=== PATIENT | female | born 1960 | race Two or more races ===

== ENCOUNTER 2018-02-13 16:35 | Inpatient (IN) | payer MEDICARE, MEDICAID ==
[~2018-02-13] VITALS: Ht 157.5 cm; Wt 54.9 kg
[2018-02-13 17:12] VITALS: BP 115/77
--- NOTE | 2018-02-13 17:55 | Emergency Room Report ---
History of Present Illness General Chief Complaint: Altered Mental Status Source: Patient, EMS Present Illness HPI Patient is a 57-year-old female who had been sent in from the nursing facility. Patient had recently been discharged from the hospital back to her nursing facility.The patient vomited one time at in route as well as one time at the facility. The patient have any black or bloody emesis. The patient had prior history of psychiatric disease as well as hyponatremia. The patient reportedly had some changes in her mental status. Allergies: Coded Allergies: No Known Allergies (Unverified , 02/13/18) Patient History Past Medical History: see triage record Reviewed Nursing Documentation: PMH: Agreed; PSxH: Agreed Nursing Documentation-PMH Hx Cardiac Problems: No - miscle weakness, lack of coorderination Hx Hypertension: Yes Hx Pacemaker: No - hypernatremia Hx Diabetes: Yes History Of Psychiatric Problem: Yes - bi-polar Review of Systems All Other Systems: negative except mentioned in HPI Physical Exam Vital Signs Date Time Temp Pulse Resp B/P (MAP) Pulse Ox O2 Delivery O2 Flow Rate FiO2 02/13/18 16:28 98.1 85 16 115/77 99 Room Air 98.1 Sp02 EP Interpretation: reviewed, normal General Appearance: normal inspection, well appearing, no apparent distress, alert, Chronically Ill Head: atraumatic ENT: normal ENT inspection, hearing grossly normal, normal voice Neck: normal inspection, full range of motion, supple, no bony tend Respiratory: normal inspection, lungs clear, normal breath sounds, no respiratory distress, no retraction, no wheezing Cardiovascular #1: regular rate, rhythm, no edema Gastrointestinal: normal inspection, normal bowel sounds, non tender, soft, no guarding, no hernia Genitourinary: no CVA tenderness Musculoskeletal: normal inspection, back normal, normal range of motion Neurologic: normal inspection, alert, responsive, speech normal Psychiatric: normal inspection, judgement/insight normal, mood/affect normal Skin: normal inspection, normal color, no rash Medical Decision Making Diagnostic Impression: Primary Impression: Altered mental status Additional Impressions: Hypokalemia Psychosis Metabolic encephalopathy ER Course Patient presented for altered mental status. Differential diagnosis included but was not limited to ischemic stroke, subarachnoid hemorrhage, hypoglycemia, spinal cord injury, neurodegenerative disorder, urinary tract infection, hypoxemia.The patient was noted to have what appears to be chronic schizophrenia. The patient is awake and oriented. Patient appears to have recently been medicated.The CT the head read by radiology showed no evidence of acute CVA or hemorrhage.The laboratory testing showed markedly hypokalemia. Patient was noted on IV potassium replacement. The patient will likely require further IV potassium.Dr. Herndon was contacted for inpatient management due to complexity of medical condition. Labs Test 02/13/18 18:08 02/13/18 18:22 Sodium Level 137 MMOL/L (136-145) Potassium Level 2.5 MMOL/L (3.5-5.1) Chloride Level 97 MMOL/L (98-107) Carbon Dioxide Level 24 MMOL/L (21-32) Anion Gap 16 mmol/L (5-15) Blood Urea Nitrogen 10 mg/dL (7-18) Creatinine 0.8 MG/DL (0.55-1.30) Estimat Glomerular Filtration Rate > 60 mL/min (>60) Glucose Level 114 MG/DL (74-106) Calcium Level 9.3 MG/DL (8.5-10.1) Total Bilirubin 1.1 MG/DL (0.2-1.0) Direct Bilirubin 0.4 MG/DL (0.0-0.3) Aspartate Amino Transf (AST/SGOT) 63 U/L (15-37) Alanine Aminotransferase (ALT/SGPT) 46 U/L (12-78) Alkaline Phosphatase 69 U/L (46-116) Total Protein 7.1 G/DL (6.4-8.2) Albumin 2.9 G/DL (3.4-5.0) Globulin 4.2 g/dL Albumin/Globulin Ratio 0.7 (1.0-2.7) Thyroid Stimulating Hormone (TSH) 2.753 uiU/mL (0.358-3.740) Salicylates Level 1.6 ug/mL (2.8-20) Urine Opiates Screen Negative (NEGATIVE) Acetaminophen Level < 2 MCG/ML (10-30) Urine Barbiturates Screen Negative (NEGATIVE) Phencyclidine (PCP) Screen Negative (NEGATIVE) Urine Amphetamines Screen Negative (NEGATIVE) Urine Benzodiazepines Screen Negative (NEGATIVE) Urine Cocaine Screen Negative (NEGATIVE) Urine Marijuana (THC) Screen Negative (NEGATIVE) Serum Alcohol < 3 mg/dL White Blood Count 8.8 K/UL (4.8-10.8) Red Blood Count 4.94 M/UL (4.20-5.40) Hemoglobin 14.5 G/DL (12.0-16.0) Hematocrit 43.9 % (37.0-47.0) Mean Corpuscular Volume 89 FL (80-99) Mean Corpuscular Hemoglobin 29.4 PG (27.0-31.0) Mean Corpuscular Hemoglobin Concent 33.0 G/DL (32.0-36.0) Red Cell Distribution Width 13.6 % (11.6-14.8) Platelet Count 196 K/UL (150-450) Mean Platelet Volume 7.8 FL (6.5-10.1) Neutrophils (%) (Auto) 67.3 % (45.0-75.0) Lymphocytes (%) (Auto) 17.1 % (20.0-45.0) Monocytes (%) (Auto) 13.6 % (1.0-10.0) Eosinophils (%) (Auto) 0.8 % (0.0-3.0) Basophils (%) (Auto) 1.2 % (0.0-2.0) Last Vital Signs Date Time Temp Pulse Resp B/P (MAP) Pulse Ox O2 Delivery O2 Flow Rate FiO2 02/13/18 17:12 98.1 16 115/77 99 Room Air 98.1 02/13/18 16:28 85 Status: unchanged Disposition: ADMITTED INPATIENT Condition: Serious Tony Zapata MD February 13, 2018 17:55
[2018-02-13] MEDS ORDERED: GLUCAGEN1 M1 IJ (17:57)
[2018-02-13] MEDS ORDERED: XOPENEX0.63 MG/3 HHN (18:01)
[2018-02-13] MEDS ORDERED: ZYPREXA10 MG ORAL (18:01)
[2018-02-13] MEDS ORDERED: METFORMIN HCL500 M1 ORAL (18:01)
[2018-02-13] MEDS ORDERED: LORAZEPAM2 MG/1 M1 IV (18:01)
[2018-02-13] MEDS ORDERED: HALOPERIDOL5 MG/1 M1 IJ (18:01)
[2018-02-13] MEDS ORDERED: DOCUSATE SODIU100 MG ORAL (18:01)
[2018-02-13] MEDS ORDERED: EFFER-K 20 MEQ20 MEQ PO (18:08)
[2018-02-13 18:36] LABS: BASOPHILS % (AUTO) 1.2 % (0.0-2.0); EOSINOPHILS % (AUTO) 0.8 % (0.0-3.0); HEMATOCRIT 43.9 % (37.0-47.0); HEMOGLOBIN 14.5 G/DL (12.0-16.0); LYMPHOCYTES % (AUTO) 17.1 % (20.0-45.0); MEAN CORPUSCULAR VOLUME 89 FL (80-99); MONOCYTES % (AUTO) 13.6 % (1.0-10.0); NEUTROPHILS % (AUTO) 67.3 % (45.0-75.0); PLATELET COUNT 196 K/UL (150-450); RED BLOOD COUNT 4.94 M/UL (4.20-5.40); RED CELL DISTRIBUTION WIDTH 13.6 % (11.6-14.8); WHITE BLOOD COUNT 8.8 K/UL (4.8-10.8)
[2018-02-13 18:45] VITALS: BP 127/65
[2018-02-13 19:14] LABS: ALANINE AMINOTRANSFERASE 46 U/L (12-78); ALBUMIN 2.9 G/DL (3.4-5.0); ALBUMIN/GLOBULIN RATIO 0.7 (1.0-2.7); ALKALINE PHOSPHATASE 69 U/L (46-116); ANION GAP 16 mmol/L (5-15); ASPARTATE AMINO TRANSFERASE 63 U/L (15-37); BILIRUBIN,TOTAL 1.1 MG/DL (0.2-1.0); BLOOD UREA NITROGEN 10 mg/dL (7-18); CALCIUM 9.3 MG/DL (8.5-10.1); CARBON DIOXIDE 24 MMOL/L (21-32); CHLORIDE 97 MMOL/L (98-107); CREATININE 0.8 MG/DL (0.55-1.30); SODIUM 137 MMOL/L (136-145)
[2018-02-13 19:15] LABS: POTASSIUM 2.5 MMOL/L (3.5-5.1)
[2018-02-13 19:16] LABS: BILIRUBIN,DIRECT 0.4 MG/DL (0.0-0.3)
[2018-02-13] MEDS: Potassium Chloride 40 MEQ in Sodium Chloride 500ML 550 ML IVPB ONE ×2 (19:45→22:43)
[2018-02-13] MEDS ORDERED: Haloperidol 5mg/ml Inj IM ONE (20:15)
[2018-02-13 21:05] VITALS: BP 125/68
[2018-02-13] MEDS ORDERED: Isovue-300 100ml vial INJ PRN (21:45)
[2018-02-13 23:00] VITALS: BP 123/71
[2018-02-14 00:15] VITALS: BP 120/70
[2018-02-14 00:35] VITALS: BP 133/79
[2018-02-14 04:00] VITALS: BP 126/67
[2018-02-14] MEDS ORDERED: D5 1/2NS 1,000 ML IV SCH (05:30)
[2018-02-14] MEDS: NovoLOG Insulin Flexpen SUBQ SCH ×4 (06:30→20:45)
[2018-02-14] MEDS ORDERED: Promethazine HCl 25 MG in NS 55 ML IV PRN (07:15)
[2018-02-14 08:00] VITALS: BP 135/82
[2018-02-14] MEDS ORDERED: LORazepam Inj 2mg/ml 1ml IV PRN (08:15)
[2018-02-14] MEDS ORDERED: Nitroglycerin Subl 0.4mg tab SL PRN ×2 (08:30→21:30)
[2018-02-14] MEDS ORDERED: Promethazine HCl 12.5 MG in NS 55 ML IV PRN ×2 (08:30→23:00)
[2018-02-14] MEDS ORDERED: Mylanta II UD 30ml ORAL PRN ×2 (08:30→23:00)
[2018-02-14] MEDS ORDERED: Metoclopramide 10mg/2ml Inj IVP PRN ×2 (08:30→23:00)
[2018-02-14] MEDS: Heparin 5000 units/ml inj SUBQ SCH ×2 (08:41→20:45)
[2018-02-14] MEDS ORDERED: Pantoprazole Inj IV SCH (09:00)
[2018-02-14] MEDS ORDERED: OLANZapine 10mg tab ORAL SCH (09:00)
--- NOTE | 2018-02-14 09:17 | Diagnostic Imaging Report ---
Indication: Abdominal pain Technique: Continuous helical transaxial imaging of the abdomen and pelvis was obtained from the lung bases to the pubic symphysis. No intravenous contrast was administered. Coronal 2-D reformats were also obtained. Automatic Exposure Control was utilized. Total Dose length Product (DLP): 554.[address] Dose Index Volume (CTDIvol): 11.05 mGy Comparison: none Findings: There is a 5 mm calcific focus in the flakita hepatis appearance is probably not in the cystic duct. This is definitely not in the CBD. There is no biliary ductal dilatation. No signs of the cholecystitis seen on this exam. Evaluation of solid organs is limited on this study. No IV contrast was given. There is no hydronephrosis or evidence of nephrolithiasis. Some breathing motion is present. The appendix is normal. No bowel obstruction, free fluid or free air identified. Urinary bladder is underdistended. Lung bases are clear IMPRESSION: Indeterminant proximally 5 mm calcific focus in the flakita hepatis. This is conceivably within the cystic duct but not likely. There are no signs of cholecystitis. The nature of the calcification is indeterminate but likely extraluminal within the flakita hepatis fat, possibly a calcified granuloma or lymph node. If there are symptoms referrable to the right upper quadrant abdomen, consider obtaining further evaluation such as an MRCP. Normal appendix. Other incidental findings detailed as above [facility] has communicated the preliminary results to the Emergency Department. Their findings are largely concordant with this report. The CT scanner at [facility] is accredited by the [employer] and the scans are performed using dose optimization techniques as appropriate to a performed exam including Automatic Exposure control.
--- NOTE | 2018-02-14 09:47 | Diagnostic Imaging Report ---
Indication: Altered mental status Technique: Contiguous 5 mm thick transaxial imaging of the head obtained in a Siemens Sensation [address] scanner. Soft tissue and bone windows generated. Automatic Exposure Control was utilized. Total Dose length Product (DLP): 1305.[address] Dose Index Volume (CTDIvol): 70.38 mGy Comparison: none Findings: There is mild prominence of the ventricles, basal cisterns, and cerebral sulci consistent with atrophy. Mild, nonspecific, white matter hypoattenuation is noted throughout the brain consistent with chronic small vessel disease. There is no midline shift, edema, acute hemorrhage, mass effect, or abnormal extra-axial fluid collections. Bones and extra osseous soft tissues are unremarkable. Impression: No acute intracranial bleed, mass effect or edema. Mild atrophy of the brain. Nonspecific white matter hypoattenuation probably due to chronic small vessel disease. [facility] has communicated the preliminary results to the Emergency Department. Their findings are largely concordant with this report. The CT scanner at [facility] is accredited by the [employer] and the scans are performed using dose optimization techniques as appropriate to a performed exam including Automatic Exposure control.
--- NOTE | 2018-02-14 10:21 | GI Initial Consult Note ---
History of Present Illness General Date patient seen: February 14, 2018 Time patient seen: 14:28 Reason for Hospitalization: Altered Mental Status Referring physician: JULY JALLOH Reason for Consultation: N/V Present Illness HPI Patient is a 57-year-old female who had been sent in from the nursing facility. Patient had recently been discharged from the hospital back to her nursing facility.The patient vomited one time at in route as well as one time at the facility. The patient have any black or bloody emesis. The patient had prior history of psychiatric disease as well as hyponatremia. The patient reportedly had some changes in her mental status. GI consulted for N/V. Pt seen, awake A&Ox2. Refusing all care. No active s/ sx of N/V/D at this time. Labs reviewed show some abnormal LFTs. Unknown history of endoscopy/colonoscopy. Home Meds Reported Medications Potassium Bicarbonate/Cit Ac (EFFER-K 20 MEQ TABLET EFF) 20 Meq Tablet.eff, 40 MEQ PO, TAB 02/13/18 Haloperidol Lactate (HALOPERIDOL LACTATE) 5 Mg/1 Ml Vial, 5 MG IJ, VIAL 02/13/18 Olanzapine* (ZYPREXA*) 10 Mg Tablet, 10 MG ORAL DAILY, #30 TAB 0 Refills 02/13/18 Metformin Hcl* (METFORMIN HCL*) 500 Mg Tablet, 500 MG ORAL TID, TAB 02/13/18 Docusate Sodium* (DOCUSATE SODIUM*) 100 Mg Capsule, 100 MG ORAL TWICE A DAY, CAP 02/13/18 Lorazepam* (LORAZEPAM*) 2 Mg/1 Ml Vial, 2 MG IV Q8HR, VIAL 02/13/18 Levalbuterol Hcl (XOPENEX*) 0.63 Mg/3 Ml Vial.neb, 0.63 MG HHN Q8HR for 30 Days , MG 0 Refills 02/13/18 Glucagon,Human Recombinant (Glucagen) 1 Mg Vial, 1 MG IJ, KIT 02/13/18 Med list reviewed/reconciled: Yes Allergies: Coded Allergies: No Known Allergies (Unverified , 02/13/18) Patient History Limited by: medical condition History Provided By: Medical Record PMH Narrative Past Medical History: see triage record Reviewed Nursing Documentation: PMH: Agreed; PSxH: Agreed Nursing Documentation-PMH Hx Cardiac Problems: No - muscle weakness, lack of coordination Hx Hypertension: Yes Hx Pacemaker: No - hypernatremia Hx Diabetes: Yes History Of Psychiatric Problem: Yes - bi-polar Review of Systems All Other Systems: limited Physical Exam Vital Signs Date Time Temp Pulse Resp B/P (MAP) Pulse Ox O2 Delivery O2 Flow Rate FiO2 02/13/18 16:28 98.1 85 16 115/77 99 Room Air 98.1 02/13/18 18:45 2.0 Sp02 EP Interpretation: reviewed, normal Labs Laboratory Tests Test 02/13/18 18:08 02/13/18 18:22 Sodium Level 137 MMOL/L (136-145) Potassium Level 2.5 MMOL/L (3.5-5.1) *L Chloride Level 97 MMOL/L (98-107) L Carbon Dioxide Level 24 MMOL/L (21-32) Anion Gap 16 mmol/L (5-15) H Blood Urea Nitrogen 10 mg/dL (7-18) Creatinine 0.8 MG/DL (0.55-1.30) Estimat Glomerular Filtration Rate > 60 mL/min (>60) Glucose Level 114 MG/DL (74-106) H Calcium Level 9.3 MG/DL (8.5-10.1) Total Bilirubin 1.1 MG/DL (0.2-1.0) H Direct Bilirubin 0.4 MG/DL (0.0-0.3) H Aspartate Amino Transf (AST/SGOT) 63 U/L (15-37) H Alanine Aminotransferase (ALT/SGPT) 46 U/L (12-78) Alkaline Phosphatase 69 U/L (46-116) Total Protein 7.1 G/DL (6.4-8.2) Albumin 2.9 G/DL (3.4-5.0) L Globulin 4.2 g/dL Albumin/Globulin Ratio 0.7 (1.0-2.7) L Thyroid Stimulating Hormone (TSH) 2.753 uiU/mL (0.358-3.740) Salicylates Level 1.6 ug/mL (2.8-20) L Urine Opiates Screen Negative (NEGATIVE) Acetaminophen Level < 2 MCG/ML (10-30) L Urine Barbiturates Screen Negative (NEGATIVE) Phencyclidine (PCP) Screen Negative (NEGATIVE) Urine Amphetamines Screen Negative (NEGATIVE) Urine Benzodiazepines Screen Negative (NEGATIVE) Urine Cocaine Screen Negative (NEGATIVE) Urine Marijuana (THC) Screen Negative (NEGATIVE) Serum Alcohol < 3 mg/dL White Blood Count 8.8 K/UL (4.8-10.8) Red Blood Count 4.94 M/UL (4.20-5.40) Hemoglobin 14.5 G/DL (12.0-16.0) Hematocrit 43.9 % (37.0-47.0) Mean Corpuscular Volume 89 FL (80-99) Mean Corpuscular Hemoglobin 29.4 PG (27.0-31.0) Mean Corpuscular Hemoglobin Concent 33.0 G/DL (32.0-36.0) Red Cell Distribution Width 13.6 % (11.6-14.8) Platelet Count 196 K/UL (150-450) Mean Platelet Volume 7.8 FL (6.5-10.1) Neutrophils (%) (Auto) 67.3 % (45.0-75.0) Lymphocytes (%) (Auto) 17.1 % (20.0-45.0) L Monocytes (%) (Auto) 13.6 % (1.0-10.0) H Eosinophils (%) (Auto) 0.8 % (0.0-3.0) Basophils (%) (Auto) 1.2 % (0.0-2.0) General Appearance: well appearing, no apparent distress, alert Head: normocephalic EENT: PERRL/EOMI, normal ENT inspection Neck: supple Respiratory: normal breath sounds, no respiratory distress Cardiovascular: normal rate Gastrointestinal: normal inspection, non tender, soft, normal bowel sounds, non -distended Rectal: deferred Genitourinary: no CVA tenderness Musculoskeletal: normal inspection, back normal Neurologic: normal inspection, alert, oriented x3, responsive Psychiatric: normal inspection, judgement/insight normal, memory normal Skin: normal inspection, normal color, no rash, warm/dry, palpation normal, well hydrated Lymphatic: normal inspection, no adenopathy Current Medications Current Medications Medications (Trade) Dose Ordered Sig/Jarod Route PRN Reason Start Time Stop Time Status Last Admin Dose Admin Acetaminophen (Tylenol) 650 mg Q4H PRN ORAL fever 02/14/18 08:30 03/16/18 08:29 Al Hydroxide/Mg Hydroxide (Mylanta II) 30 ml Q6H PRN ORAL dyspepsia 02/14/18 08:30 03/16/18 08:29 Dextrose (Dextrose 50%) 25 ml STAT PRN IV Hypoglycemia 02/14/18 05:30 03/16/18 05:29 Dextrose (Dextrose 50%) 50 ml STAT PRN IV Hypoglycemia 02/14/18 05:30 03/16/18 05:29 Dextrose/Sodium Chloride 1,000 ml @ 50 mls/hr Q20H IV 02/14/18 05:30 03/16/18 05:29 02/14/18 05:38 Diphenhydramine HCl (Benadryl) 25 mg Q6H PRN ORAL Itching/Pruritis 02/14/18 08:30 03/16/18 08:29 Heparin Sodium (Porcine) (Heparin 5000 units/ml) 5,000 units EVERY 12 HOURS SUBQ 02/14/18 09:00 03/16/18 08:59 02/14/18 08:41 Insulin Aspart (NovoLOG) BEFORE MEALS AND HS SUBQ 02/14/18 06:30 03/16/18 06:29 Iopamidol (Isovue-300 100ml) 100 ml NOW PRN INJ Radiology Procedure 02/13/18 21:45 Lorazepam (Ativan 2mg/ml 1ml) 1 mg Q4H PRN IV agitation 02/14/18 08:15 02/21/18 08:14 Lorazepam (Ativan 2mg/ml 1ml) 2 mg Q8HR IV 02/14/18 14:00 02/21/18 13:59 UNV Metoclopramide HCl (Reglan) 10 mg Q6H PRN IVP servere nausea 02/14/18 08:30 03/16/18 08:29 Nitroglycerin (Ntg) 0.4 mg Q5M X 3 DOSES PRN SL Prn Chest Pain 02/14/18 08:30 03/16/18 08:29 Olanzapine (ZyPREXA) 10 mg DAILY ORAL 02/14/18 09:00 03/16/18 08:59 02/14/18 08:40 Ondansetron HCl (Zofran) 4 mg Q6H PRN IVP Nausea & Vomiting 02/14/18 08:30 03/16/18 08:29 Pantoprazole (Protonix) 40 mg DAILY IV 02/14/18 09:00 03/16/18 08:59 02/14/18 08:40 Polyethylene Glycol (Miralax) 17 gm HSPRN PRN ORAL Constipation 02/14/18 21:00 03/16/18 20:59 Promethazine HCl 12.5 mg/Sodium Chloride 55.5 ml @ 110 mls/hr Q6H PRN IV Refractory N/V 02/14/18 08:30 03/16/18 08:29 Promethazine HCl 25 mg/Sodium Chloride 56 ml @ 110 mls/hr Q6H PRN IV Refractory N/V 02/14/18 07:15 03/16/18 07:14 UNV Temazepam (Restoril) 15 mg HSPRN PRN ORAL Insomnia 02/14/18 21:00 02/21/18 20:59 GI: Plan Problems: (1) Altered mental status Plan CT AP reviewed >> Indeterminant proximally 5 mm calcific focus in the flakita hepatis. >> possibly a calcified granuloma or lymph node. refuses care fu psych symptomatic treatment / supportive care zofran prn adv diet as tolerated bowel regime trend LFTs electrolyte correction fu labs outpatient GI procedures Discussed with Dr. Velasco. Thank you for this patient referral, we will follow. The patient was seen and examined at bedside and all new and available data was reviewed in the patients chart. I agree with the above findings, impression and plan. (Patient seen earlier today. Signature stamp does not reflect patient encounter time.). - MD Karlene Ulrich,[facility] DIGITAL DATA ANALYST February 14, 2018 10:21
--- NOTE | 2018-02-14 11:08 | History and Physical ---
History of Present Illness General Date patient seen: February 14, 2018 Reason for Hospitalization: Altered Mental Status Present Illness HPI 57-year-old female with hx of schizophrenia, bipolar, COPD, sent in from the nursing facility for evaluation of multiple episodes of vomiting . The patient have any black or bloody emesis. The patient reportedly had some changes in her mental status. She was found to have severe hypokalemia and admitted for further work up. Allergies: Coded Allergies: No Known Allergies (Unverified , 02/13/18) Medication History Scheduled Docusate Sodium* (Docusate Sodium*), 100 MG ORAL TWICE A DAY, (Reported) Levalbuterol Hcl (Xopenex*), 0.63 MG HHN Q8HR, (Reported) Lorazepam* (Lorazepam*), 2 MG IV Q8HR, (Reported) Metformin Hcl* (Metformin Hcl*), 500 MG ORAL TID, (Reported) Olanzapine* (Zyprexa*), 10 MG ORAL DAILY, (Reported) Miscellaneous Medications Glucagon,Human Recombinant (Glucagen), 1 MG IJ, (Reported) Haloperidol Lactate (Haloperidol Lactate), 5 MG IJ, (Reported) Potassium Bicarbonate/Cit Ac (Effer-K 20 Meq Tablet Eff), 40 MEQ PO, (Reported) Patient History Healthcare decision maker Resuscitation status Do Not Resuscitate Advanced Directive on File Yes Past Medical/Surgical History Past Medical/Surgical History: (1) Psychosis Review of Systems All Other Systems: negative except mentioned in HPI Physical Exam General Appearance: WD/WN Lines, tubes and drains: peripheral HEENT: normocephalic, atraumatic Neck: non-tender, normal alignment Respiratory/Chest: chest wall non-tender, lungs clear Cardiovascular/Chest: normal rate Abdomen: normal bowel sounds, non tender Genitourinary/Rectal: normal genital exam Extremities: normal range of motion Skin Exam: normal pigmentation Last 24 Hour Vital Signs Date Time Temp Pulse Resp B/P (MAP) Pulse Ox O2 Delivery O2 Flow Rate FiO2 02/14/18 08:00 97.7 92 19 135/82 98 Room Air 2.0 97.7 02/14/18 08:00 76 02/14/18 04:00 81 02/14/18 04:00 97.7 90 19 126/67 98 Room Air 97.7 02/14/18 00:40 79 02/14/18 00:35 97.9 95 20 133/79 99 Room Air 97.9 02/14/18 00:30 98.1 72 16 120/70 100 Room Air 98.1 02/14/18 00:15 98.1 72 16 120/70 100 Room Air 98.1 02/13/18 23:00 98.0 71 15 123/71 100 Room Air 98.0 02/13/18 21:05 78 16 125/68 100 Room Air 02/13/18 18:45 98.1 72 15 127/65 100 Nasal Cannula 2.0 98.1 02/13/18 17:12 98.1 16 115/77 99 Room Air 98.1 02/13/18 16:28 98.1 85 16 115/77 99 Room Air 98.1 Intake and Output 02/13/18 02/14/18 19:00 07:00 Output Total 60 ml Balance -60 ml Output Urine Total 60 ml # Voids 1 1 Laboratory Tests Test 02/13/18 18:08 02/13/18 18:22 Sodium Level 137 MMOL/L (136-145) Potassium Level 2.5 MMOL/L (3.5-5.1) *L Chloride Level 97 MMOL/L (98-107) L Carbon Dioxide Level 24 MMOL/L (21-32) Anion Gap 16 mmol/L (5-15) H Blood Urea Nitrogen 10 mg/dL (7-18) Creatinine 0.8 MG/DL (0.55-1.30) Estimat Glomerular Filtration Rate > 60 mL/min (>60) Glucose Level 114 MG/DL (74-106) H Calcium Level 9.3 MG/DL (8.5-10.1) Total Bilirubin 1.1 MG/DL (0.2-1.0) H Direct Bilirubin 0.4 MG/DL (0.0-0.3) H Aspartate Amino Transf (AST/SGOT) 63 U/L (15-37) H Alanine Aminotransferase (ALT/SGPT) 46 U/L (12-78) Alkaline Phosphatase 69 U/L (46-116) Total Protein 7.1 G/DL (6.4-8.2) Albumin 2.9 G/DL (3.4-5.0) L Globulin 4.2 g/dL Albumin/Globulin Ratio 0.7 (1.0-2.7) L Thyroid Stimulating Hormone (TSH) 2.753 uiU/mL (0.358-3.740) Salicylates Level 1.6 ug/mL (2.8-20) L Urine Opiates Screen Negative (NEGATIVE) Acetaminophen Level < 2 MCG/ML (10-30) L Urine Barbiturates Screen Negative (NEGATIVE) Phencyclidine (PCP) Screen Negative (NEGATIVE) Urine Amphetamines Screen Negative (NEGATIVE) Urine Benzodiazepines Screen Negative (NEGATIVE) Urine Cocaine Screen Negative (NEGATIVE) Urine Marijuana (THC) Screen Negative (NEGATIVE) Serum Alcohol < 3 mg/dL White Blood Count 8.8 K/UL (4.8-10.8) Red Blood Count 4.94 M/UL (4.20-5.40) Hemoglobin 14.5 G/DL (12.0-16.0) Hematocrit 43.9 % (37.0-47.0) Mean Corpuscular Volume 89 FL (80-99) Mean Corpuscular Hemoglobin 29.4 PG (27.0-31.0) Mean Corpuscular Hemoglobin Concent 33.0 G/DL (32.0-36.0) Red Cell Distribution Width 13.6 % (11.6-14.8) Platelet Count 196 K/UL (150-450) Mean Platelet Volume 7.8 FL (6.5-10.1) Neutrophils (%) (Auto) 67.3 % (45.0-75.0) Lymphocytes (%) (Auto) 17.1 % (20.0-45.0) L Monocytes (%) (Auto) 13.6 % (1.0-10.0) H Eosinophils (%) (Auto) 0.8 % (0.0-3.0) Basophils (%) (Auto) 1.2 % (0.0-2.0) Height (Feet): 5 Height (Inches): 2.00 Weight (Pounds): 121 Medications Current Medications Medications (Trade) Dose Ordered Sig/Jarod Route PRN Reason Start Time Stop Time Status Last Admin Dose Admin Acetaminophen (Tylenol) 650 mg Q4H PRN ORAL fever 02/14/18 08:30 03/16/18 08:29 Al Hydroxide/Mg Hydroxide (Mylanta II) 30 ml Q6H PRN ORAL dyspepsia 02/14/18 08:30 03/16/18 08:29 Dextrose (Dextrose 50%) 25 ml STAT PRN IV Hypoglycemia 02/14/18 05:30 03/16/18 05:29 Dextrose (Dextrose 50%) 50 ml STAT PRN IV Hypoglycemia 02/14/18 05:30 03/16/18 05:29 Dextrose/Sodium Chloride 1,000 ml @ 50 mls/hr Q20H IV 02/14/18 05:30 03/16/18 05:29 02/14/18 05:38 Diphenhydramine HCl (Benadryl) 25 mg Q6H PRN ORAL Itching/Pruritis 02/14/18 08:30 03/16/18 08:29 Heparin Sodium (Porcine) (Heparin 5000 units/ml) 5,000 units EVERY 12 HOURS SUBQ 02/14/18 09:00 03/16/18 08:59 02/14/18 08:41 Insulin Aspart (NovoLOG) BEFORE MEALS AND HS SUBQ 02/14/18 06:30 03/16/18 06:29 Iopamidol (Isovue-300 100ml) 100 ml NOW PRN INJ Radiology Procedure 02/13/18 21:45 Lorazepam (Ativan 2mg/ml 1ml) 1 mg Q4H PRN IV agitation 02/14/18 08:15 02/21/18 08:14 Metoclopramide HCl (Reglan) 10 mg Q6H PRN IVP servere nausea 02/14/18 08:30 03/16/18 08:29 Nitroglycerin (Ntg) 0.4 mg Q5M X 3 DOSES PRN SL Prn Chest Pain 02/14/18 08:30 03/16/18 08:29 Olanzapine (ZyPREXA) 10 mg DAILY ORAL 02/14/18 09:00 03/16/18 08:59 02/14/18 08:40 Ondansetron HCl (Zofran) 4 mg Q6H PRN IVP Nausea & Vomiting 02/14/18 08:30 03/16/18 08:29 Pantoprazole (Protonix) 40 mg DAILY IV 02/14/18 09:00 03/16/18 08:59 02/14/18 08:40 Polyethylene Glycol (Miralax) 17 gm HSPRN PRN ORAL Constipation 02/14/18 21:00 03/16/18 20:59 Promethazine HCl 12.5 mg/Sodium Chloride 55.5 ml @ 110 mls/hr Q6H PRN IV Refractory N/V 02/14/18 08:30 03/16/18 08:29 Promethazine HCl 25 mg/Sodium Chloride 56 ml @ 110 mls/hr Q6H PRN IV Refractory N/V 02/14/18 07:15 03/16/18 07:14 UNV Temazepam (Restoril) 15 mg HSPRN PRN ORAL Insomnia 02/14/18 21:00 02/21/18 20:59 Assessment/Plan Problem List: (1) Altered mental status ICD Codes: R41.82 - Altered mental status, unspecified SNOMED: 778273211 (2) Hypokalemia ICD Codes: E87.6 - Hypokalemia SNOMED: 18485921 (3) Psychosis ICD Codes: F29 - Unspecified psychosis not due to a substance or known physiological condition SNOMED: 31852489 Assessment/Plan neuro and psych evaluation correct electrolytes check labs in am continue psychiatric meds dvt prophylaxis Farrukh Herndon MD February 14, 2018 11:08
[2018-02-14 12:00] VITALS: BP 111/82
--- NOTE | 2018-02-14 12:08 | Consultation ---
History of Present Illness General Date patient seen: February 14, 2018 Chief Complaint: Altered Mental Status Present Illness HPI 57-year-old female with hx of schizophrenia, bipolar, COPD, who was recently hospitalized was admitted from the nursing facility for evaluation of multiple episodes of vomiting. The pt is disorganized and delusional. The pt is non- compliant and is not able to participate in evaluation. The pt refuses to drink and eat. Allergies: Coded Allergies: No Known Allergies (Unverified , 02/13/18) Medication History Scheduled Docusate Sodium* (Docusate Sodium*), 100 MG ORAL TWICE A DAY, (Reported) Levalbuterol Hcl (Xopenex*), 0.63 MG HHN Q8HR, (Reported) Lorazepam* (Lorazepam*), 2 MG IV Q8HR, (Reported) Metformin Hcl* (Metformin Hcl*), 500 MG ORAL TID, (Reported) Olanzapine* (Zyprexa*), 10 MG ORAL DAILY, (Reported) Miscellaneous Medications Glucagon,Human Recombinant (Glucagen), 1 MG IJ, (Reported) Haloperidol Lactate (Haloperidol Lactate), 5 MG IJ, (Reported) Potassium Bicarbonate/Cit Ac (Effer-K 20 Meq Tablet Eff), 40 MEQ PO, (Reported) Patient History Limited by: medical condition History Provided By: Patient, Medical Record, PMD Healthcare decision maker Resuscitation status Do Not Resuscitate Advanced Directive on File Yes Past Medical/Surgical History Past Medical/Surgical History: (1) Hypokalemia (2) Psychosis (3) Altered mental status (4) Hypokalemia (5) Altered mental status Review of Systems Psychiatric: Reports: prior hx, anxiety, depressed feelings, emotional problems Physical Exam General Appearance: WD/WN, no apparent distress, alert, confused, agitated Last 24 Hour Vital Signs Date Time Temp Pulse Resp B/P (MAP) Pulse Ox O2 Delivery O2 Flow Rate FiO2 02/14/18 08:00 97.7 92 19 135/82 98 Room Air 2.0 97.7 02/14/18 08:00 76 02/14/18 04:00 81 02/14/18 04:00 97.7 90 19 126/67 98 Room Air 97.7 02/14/18 00:40 79 02/14/18 00:35 97.9 95 20 133/79 99 Room Air 97.9 02/14/18 00:30 98.1 72 16 120/70 100 Room Air 98.1 02/14/18 00:15 98.1 72 16 120/70 100 Room Air 98.1 02/13/18 23:00 98.0 71 15 123/71 100 Room Air 98.0 02/13/18 21:05 78 16 125/68 100 Room Air 02/13/18 18:45 98.1 72 15 127/65 100 Nasal Cannula 2.0 98.1 02/13/18 17:12 98.1 16 115/77 99 Room Air 98.1 02/13/18 16:28 98.1 85 16 115/77 99 Room Air 98.1 Intake and Output 02/13/18 02/14/18 19:00 07:00 Output Total 60 ml Balance -60 ml Output Urine Total 60 ml # Voids 1 1 Laboratory Tests Test 02/13/18 18:08 02/13/18 18:22 Sodium Level 137 MMOL/L (136-145) Potassium Level 2.5 MMOL/L (3.5-5.1) *L Chloride Level 97 MMOL/L (98-107) L Carbon Dioxide Level 24 MMOL/L (21-32) Anion Gap 16 mmol/L (5-15) H Blood Urea Nitrogen 10 mg/dL (7-18) Creatinine 0.8 MG/DL (0.55-1.30) Estimat Glomerular Filtration Rate > 60 mL/min (>60) Glucose Level 114 MG/DL (74-106) H Calcium Level 9.3 MG/DL (8.5-10.1) Total Bilirubin 1.1 MG/DL (0.2-1.0) H Direct Bilirubin 0.4 MG/DL (0.0-0.3) H Aspartate Amino Transf (AST/SGOT) 63 U/L (15-37) H Alanine Aminotransferase (ALT/SGPT) 46 U/L (12-78) Alkaline Phosphatase 69 U/L (46-116) Total Protein 7.1 G/DL (6.4-8.2) Albumin 2.9 G/DL (3.4-5.0) L Globulin 4.2 g/dL Albumin/Globulin Ratio 0.7 (1.0-2.7) L Thyroid Stimulating Hormone (TSH) 2.753 uiU/mL (0.358-3.740) Salicylates Level 1.6 ug/mL (2.8-20) L Urine Opiates Screen Negative (NEGATIVE) Acetaminophen Level < 2 MCG/ML (10-30) L Urine Barbiturates Screen Negative (NEGATIVE) Phencyclidine (PCP) Screen Negative (NEGATIVE) Urine Amphetamines Screen Negative (NEGATIVE) Urine Benzodiazepines Screen Negative (NEGATIVE) Urine Cocaine Screen Negative (NEGATIVE) Urine Marijuana (THC) Screen Negative (NEGATIVE) Serum Alcohol < 3 mg/dL White Blood Count 8.8 K/UL (4.8-10.8) Red Blood Count 4.94 M/UL (4.20-5.40) Hemoglobin 14.5 G/DL (12.0-16.0) Hematocrit 43.9 % (37.0-47.0) Mean Corpuscular Volume 89 FL (80-99) Mean Corpuscular Hemoglobin 29.4 PG (27.0-31.0) Mean Corpuscular Hemoglobin Concent 33.0 G/DL (32.0-36.0) Red Cell Distribution Width 13.6 % (11.6-14.8) Platelet Count 196 K/UL (150-450) Mean Platelet Volume 7.8 FL (6.5-10.1) Neutrophils (%) (Auto) 67.3 % (45.0-75.0) Lymphocytes (%) (Auto) 17.1 % (20.0-45.0) L Monocytes (%) (Auto) 13.6 % (1.0-10.0) H Eosinophils (%) (Auto) 0.8 % (0.0-3.0) Basophils (%) (Auto) 1.2 % (0.0-2.0) Height (Feet): 5 Height (Inches): 2.00 Weight (Pounds): 121 Medications Current Medications Medications (Trade) Dose Ordered Sig/Jarod Route PRN Reason Start Time Stop Time Status Last Admin Dose Admin Acetaminophen (Tylenol) 650 mg Q4H PRN ORAL fever 02/14/18 08:30 03/16/18 08:29 Al Hydroxide/Mg Hydroxide (Mylanta II) 30 ml Q6H PRN ORAL dyspepsia 02/14/18 08:30 03/16/18 08:29 Dextrose (Dextrose 50%) 25 ml STAT PRN IV Hypoglycemia 02/14/18 05:30 03/16/18 05:29 Dextrose (Dextrose 50%) 50 ml STAT PRN IV Hypoglycemia 02/14/18 05:30 03/16/18 05:29 Dextrose/Sodium Chloride 1,000 ml @ 50 mls/hr Q20H IV 02/14/18 05:30 03/16/18 05:29 02/14/18 05:38 Diphenhydramine HCl (Benadryl) 25 mg Q6H PRN ORAL Itching/Pruritis 02/14/18 08:30 03/16/18 08:29 Haloperidol Decanoate (Haldol) 50 mg ONCE ONCE IM 02/14/18 12:00 02/14/18 12:01 UNV Heparin Sodium (Porcine) (Heparin 5000 units/ml) 5,000 units EVERY 12 HOURS SUBQ 02/14/18 09:00 03/16/18 08:59 02/14/18 08:41 Insulin Aspart (NovoLOG) BEFORE MEALS AND HS SUBQ 02/14/18 06:30 03/16/18 06:29 Iopamidol (Isovue-300 100ml) 100 ml NOW PRN INJ Radiology Procedure 02/13/18 21:45 Lorazepam (Ativan 2mg/ml 1ml) 1 mg Q4H PRN IV agitation 02/14/18 08:15 02/21/18 08:14 Metoclopramide HCl (Reglan) 10 mg Q6H PRN IVP servere nausea 02/14/18 08:30 03/16/18 08:29 Nitroglycerin (Ntg) 0.4 mg Q5M X 3 DOSES PRN SL Prn Chest Pain 02/14/18 08:30 03/16/18 08:29 Olanzapine (ZyPREXA) 10 mg DAILY ORAL 02/14/18 09:00 03/16/18 08:59 02/14/18 08:40 Ondansetron HCl (Zofran) 4 mg Q6H PRN IVP Nausea & Vomiting 02/14/18 08:30 03/16/18 08:29 Pantoprazole (Protonix) 40 mg DAILY IV 02/14/18 09:00 03/16/18 08:59 02/14/18 08:40 Polyethylene Glycol (Miralax) 17 gm HSPRN PRN ORAL Constipation 02/14/18 21:00 03/16/18 20:59 Promethazine HCl 12.5 mg/Sodium Chloride 55.5 ml @ 110 mls/hr Q6H PRN IV Refractory N/V 02/14/18 08:30 03/16/18 08:29 Temazepam (Restoril) 15 mg HSPRN PRN ORAL Insomnia 02/14/18 21:00 02/21/18 20:59 Assessment/Plan Status: not improved, unchanged Assessment/Plan schizoaffective d/o -haldol dec -haldol prn -risperdal liquid -ativan prn Farhan Mclaughlin M.D. February 14, 2018 12:08
[2018-02-14] MEDS ORDERED: Haloperidol Decanoate 50mg Inj IM SCH (13:00)
[2018-02-14] MEDS ORDERED: LORazepam Inj 2mg/ml 1ml IV SCH (14:00)
[2018-02-14 16:00] VITALS: BP 118/76
[2018-02-14] MEDS ORDERED: Miralax 17gm pkt ORAL PRN ×2 (21:00→23:00)
[2018-02-14] MEDS ORDERED: Isovue-300 100ml vial INJ PRN (21:45)
[2018-02-14] MEDS: D5 1/2NS 1,000 ML IV SCH (23:00)
[2018-02-15] MEDS: NovoLOG Insulin Flexpen SUBQ SCH ×4 (06:30→20:38)
[2018-02-15 08:00] VITALS: BP 133/89
[2018-02-15] MEDS ORDERED: Heparin 5000 units/ml inj SUBQ SCH (09:00)
[2018-02-15] MEDS ORDERED: Pantoprazole Inj IV SCH (09:00)
[2018-02-15 12:00] VITALS: BP 143/103
[2018-02-15 16:00] VITALS: BP 149/105
[2018-02-15] MEDS: D5 1/2NS 1,000 ML IV SCH (18:27)
[2018-02-15] MEDS: Heparin 5000 units/ml inj SUBQ SCH (20:37)
[2018-02-15 20:48] VITALS: BP 151/114
--- NOTE | 2018-02-15 22:04 | Pulmonology Progress Note ---
Assessment/Plan Problems: (1) Metabolic encephalopathy (2) Altered mental status (3) Hypokalemia (4) Psychosis (5) Severe malnutrition Assessment/Plan still confused calorie count psych evaluation nutrition evaluation check electrolytes Subjective Allergies: Coded Allergies: No Known Allergies (Unverified , 02/13/18) Objective Last 24 Hour Vital Signs Date Time Temp Pulse Resp B/P (MAP) Pulse Ox O2 Delivery O2 Flow Rate FiO2 02/15/18 20:48 98.2 140 19 151/114 95 98.2 02/15/18 16:00 97.7 19 149/105 94 Room Air 97.7 02/15/18 12:00 97.2 19 143/103 99 Room Air 97.2 02/15/18 08:00 98.3 19 133/89 96 Room Air 98.3 Intake and Output 02/14/18 02/15/18 19:00 07:00 # Voids 1 2 Current Medications Medications (Trade) Dose Ordered Sig/Jarod Route PRN Reason Start Time Stop Time Status Last Admin Dose Admin Acetaminophen (Tylenol) 650 mg Q4H PRN ORAL fever 02/14/18 23:00 03/16/18 22:59 Al Hydroxide/Mg Hydroxide (Mylanta II) 30 ml Q6H PRN ORAL dyspepsia 02/14/18 23:00 03/16/18 22:59 Dextrose (Dextrose 50%) 25 ml STAT PRN IV Hypoglycemia 02/14/18 23:00 03/16/18 22:59 Dextrose (Dextrose 50%) 50 ml STAT PRN IV Hypoglycemia 02/15/18 05:30 03/16/18 05:29 Dextrose/Sodium Chloride 1,000 ml @ 50 mls/hr Q20H IV 02/14/18 23:00 03/16/18 22:59 02/14/18 23:00 Diphenhydramine HCl (Benadryl) 25 mg Q6H PRN ORAL Itching/Pruritis 02/14/18 23:00 03/16/18 22:59 Heparin Sodium (Porcine) (Heparin 5000 units/ml) 5,000 units EVERY 12 HOURS SUBQ 02/15/18 21:00 03/16/18 20:59 Insulin Aspart (NovoLOG) BEFORE MEALS AND HS SUBQ 02/15/18 06:30 03/16/18 06:29 Iopamidol (Isovue-300 100ml) 100 ml NOW PRN INJ Radiology Procedure 02/14/18 21:45 02/16/18 21:44 Lorazepam (Ativan 2mg/ml 1ml) 1 mg Q4H PRN IV agitation 02/14/18 23:00 02/21/18 22:59 Metoclopramide HCl (Reglan) 10 mg Q6H PRN IVP servere nausea 02/14/18 23:00 03/16/18 22:59 Nitroglycerin (Ntg) 0.4 mg Q5M X 3 DOSES PRN SL Prn Chest Pain 02/14/18 21:30 03/16/18 08:29 Ondansetron HCl (Zofran) 4 mg Q6H PRN IVP Nausea & Vomiting 02/14/18 23:00 03/16/18 22:59 Pantoprazole (Protonix) 40 mg DAILY IV 02/16/18 09:00 03/17/18 08:59 Polyethylene Glycol (Miralax) 17 gm HSPRN PRN ORAL Constipation 02/14/18 23:00 03/16/18 22:59 Promethazine HCl 12.5 mg/Sodium Chloride 55.5 ml @ 110 mls/hr Q6H PRN IV Refractory N/V 02/14/18 23:00 03/16/18 22:59 Risperidone (RisperDAL) 2 mg BID ORAL 02/15/18 18:00 03/16/18 17:59 Temazepam (Restoril) 15 mg HSPRN PRN ORAL Insomnia 02/14/18 23:00 02/21/18 22:59 Farrukh Herndon MD February 15, 2018 22:04
[2018-02-16] VITALS: BP 148/109
[2018-02-16 04:00] VITALS: BP 118/72
[2018-02-16] MEDS: LORazepam Inj 2mg/ml 1ml IV PRN ×2 (04:45→20:30)
[2018-02-16] MEDS: D5 1/2NS 1,000 ML IV SCH (05:45)
[2018-02-16] MEDS: NovoLOG Insulin Flexpen SUBQ SCH ×4 (06:30→21:00)
[2018-02-16 08:00] VITALS: BP 130/76
[2018-02-16] MEDS: Pantoprazole Inj IV SCH (09:39)
[2018-02-16] MEDS: Heparin 5000 units/ml inj SUBQ SCH ×2 (09:40→20:52)
[2018-02-16] MEDS ORDERED: D5 1/2NS 1000ml IV ONE (10:54)
--- NOTE | 2018-02-16 11:13 | General Progress Note ---
Assessment/Plan Status: stable Assessment/Plan (1) Altered mental status ICD Codes: R41.82 - Altered mental status, unspecified SNOMED: 834886232 (2) Hypokalemia ICD Codes: E87.6 - Hypokalemia SNOMED: 81023696 (3) Psychosis ICD Codes: F29 - Unspecified psychosis not due to a substance or known physiological condition SNOMED: 81993100 Assessment/Plan neuro and psych evaluation correct electrolytes KCL 40 meq Now x1 BMP stat Subjective Allergies: Coded Allergies: No Known Allergies (Unverified , 02/13/18) Objective Last 24 Hour Vital Signs Date Time Temp Pulse Resp B/P (MAP) Pulse Ox O2 Delivery O2 Flow Rate FiO2 02/16/18 08:00 97.8 104 18 130/76 98 97.8 02/16/18 04:00 98.3 106 16 118/72 98 98.3 02/16/18 00:00 98.1 131 18 148/109 96 98.1 02/15/18 20:48 98.2 140 19 151/114 95 98.2 02/15/18 16:00 97.7 19 149/105 94 Room Air 97.7 02/15/18 12:00 97.2 19 143/103 99 Room Air 97.2 Intake and Output 02/15/18 02/16/18 19:00 07:00 # Voids 3 Height (Feet): 5 Height (Inches): 2.00 Weight (Pounds): 121 Objective Physical Exam General Appearance: WD/WN Lines, tubes and drains: peripheral HEENT: normocephalic, atraumatic Neck: non-tender, normal alignment Respiratory/Chest: chest wall non-tender, lungs clear Cardiovascular/Chest: normal rate Abdomen: normal bowel sounds, non tender Genitourinary/Rectal: normal genital exam Extremities: normal range of motion Skin Exam: normal pigmentation Sherlyn Alanis MD February 16, 2018 11:13
[2018-02-16 12:00] VITALS: BP 95/56
[2018-02-16] MEDS ORDERED: Potassium Chloride 40 MEQ in Sodium Chloride 500ML 550 ML IVPB ONE (14:00)
[2018-02-16] MEDS ORDERED: Haloperidol Decanoate 50mg Inj IM SCH (14:30)
[2018-02-16 16:00] VITALS: BP 133/113
[2018-02-16 20:00] VITALS: BP 154/98
[2018-02-17 00:19] VITALS: BP 139/95
[2018-02-17 04:39] VITALS: BP 119/82
[2018-02-17] MEDS: NovoLOG Insulin Flexpen SUBQ SCH ×4 (05:59→20:42)
[2018-02-17] MEDS: D5 1/2NS 1,000 ML IV SCH ×2 (05:59→20:42)
--- NOTE | 2018-02-17 07:30 | Physician Query ---
--------- THIS DOCUMENT IS A PERMANENT PART OF THE MEDICAL RECORD --------- PLEASE COMPLETE DOCUMENT BEFORE SIGNING Dear Dr. Herndon Date: 02/17/2018 Tube Buffer/CDS Name: Laure Osborn Tube Buffer / CDS Phone # Exercise your independent professional judgment when responding to query. Question asked do not imply a particular answer is desired/expected. Clinical Documentation States: "Altered Mental Status" documented in [facility] & [facility] (02/14/2018). Patient came with multiple episodes of vomiting. Clinical Findings Show: Potassium: 2.5 (reference 3.5-5.1) Glucose: 114 (reference 74-106) Total Bilirubin: 1.1 (reference 0.2-1.0) Direct Bilirubin: 0.4 (reference <0.3) AST: 63 (reference 15-37) Please indicate the nature and chronicity of the condition below: [] Metabolic Encephalopathy [] Toxic Encephalopathy [] Toxic - Metabolic Encephalopathy [] Hepatic Encephalopathy [] Progressive Encephalopathy [] Encephalopathy, Other [] Other: [] Not Applicable Severity [] Acute [] Chronic [] Acute on Chronic [] Unable to determine Condition Present on Admission: [] Yes [] No []Clinically Undeterminable Please also document in your Progress Notes and/or Discharge Summary and indicate if the condition was present on admission. MTDD
[2018-02-17 08:00] VITALS: BP 127/90
[2018-02-17] MEDS: Pantoprazole Inj IV SCH (09:10)
[2018-02-17] MEDS: Heparin 5000 units/ml inj SUBQ SCH ×2 (09:11→20:41)
--- NOTE | 2018-02-17 11:32 | Physician Query ---
--------- THIS DOCUMENT IS A PERMANENT PART OF THE MEDICAL RECORD --------- PLEASE COMPLETE DOCUMENT BEFORE SIGNING Dear Dr. Herndon Date: 02/17/2018 Relationship Manager/CDS Name: Laure Osborn Relationship Manager/CDS Phone No.: Exercise your independent professional judgment when responding to the query. Questions asked do not imply a particular answer is desired or expected. We greatly appreciate your clarification on this issue. CLINICAL DOCUMENTATION STATES: Patient sent from SNF with multiple episodes of vomiting. CLINICAL FINDINGS SHOW: 02/13/2018: Albumin: 2.9 (Reference 3.4-5.0) Please select the most appropriate option: [] Mild [] Moderate [] Protein/Calorie Malnutrition [] Protein Malnutrition >Serum albumin 2.8 to 3.4 g/dL or Pre-albumin 5 to 7 mg/dl (3) >Inadequate nutritional intake (1, 2, 3, 4) >NPO > 5 days >Weight loss: 5% in 1 month or 7.5% in 3 months or 10% in 6 months (1,3,4) >BMI 16 to 18.4 or Weight <90 of ideal body weight (1,2,3,4) [] Severe Malnutrition (Protein/Calorie) [] Severe Protein Malnutrition >Serum Albumin < 2.8 g/dL (1,2) >Lymphocytes < 1500/uL (2) >Inadequate nutritional intake3 , high stress e.g. major trauma, sepsis, pancreatitis, mckeon etc. >Decubitus ulcers (1,2) , skin breakdown(2), easy hair pluckability >Weight <80% standard for height (2) >Triceps skin fold <3 mm2 >Mid-arm muscle circumference <25 cm2 >Creatinine-height index <60% standard (2) _ [] Hypoalbuminemia [] Emancipated w/ Malnutrition [] Kwashi[place]or (rare in [place]) [] Marasmus [] Other [] Unable to determine [] Not Applicable Condition Present on Admission: [] Yes [] No [ ] Unable to determine Please also document in your Progress Notes and/or Discharge Summary and indicate if the condition was present on admission. M.D. References: 1 [facility]. (2007). Nutritional support strategy for protein -energy malnutrition in the elderly. Clinical Practice Guidelines. 2 Reji Davila (2011). Malnutrition and nutritional assessment. In Brayden Gomez (18th Ed.) [employer] Principle of Internal Medicine ([id number]) [place], [place]: [facility] 3 Kulwinder Cook. (2001). Clinical Nutrition: Protein-energy malnutrition in the inpatient. [employer] Journal, vol. 165 no. 10 (pp. 3356- 1347 ). 4 Nicci Nur (2012). Geriactric Nutrition: Nutritional Issues in Older Adults. [email or web address]
--- NOTE | 2018-02-17 11:52 | GI Progress Note ---
Assessment/Plan Problems: (1) Severe malnutrition ICD Codes: E43 - Unspecified severe protein-calorie malnutrition SNOMED: 62145363 (2) Dehydration ICD Codes: E86.0 - Dehydration SNOMED: 04566129 (3) Altered mental status ICD Codes: R41.82 - Altered mental status, unspecified SNOMED: 544494086 (4) Psychosis ICD Codes: F29 - Unspecified psychosis not due to a substance or known physiological condition SNOMED: 92423726 Status: unchanged Status Narrative Discussed with Dr. Velasco. Assessment/Plan CT AP reviewed >> Indeterminant proximally 5 mm calcific focus in the flakita hepatis. >> possibly a calcified granuloma or lymph node. refuses PO intake/care fu psych symptomatic treatment / supportive care zofran prn adv diet as tolerated bowel regime trend LFTs electrolyte correction fu labs outpatient GI procedures Subjective Subjective refusing PO intake Objective Last 24 Hour Vital Signs Date Time Temp Pulse Resp B/P (MAP) Pulse Ox O2 Delivery O2 Flow Rate FiO2 02/17/18 08:00 98.1 89 16 127/90 98 98.1 02/17/18 04:39 98.4 116 16 119/82 97 98.4 02/17/18 00:19 98.2 140 17 139/95 96 98.2 02/16/18 20:00 98.0 136 18 154/98 95 98.0 02/16/18 16:00 99.3 11 20 133/113 100 Room Air 99.3 02/16/18 12:00 98.2 98 18 95/56 95 Room Air 98.2 Intake and Output 02/16/18 02/17/18 19:00 07:00 Intake Total 820 ml 500 ml Output Total 0 ml Balance 820 ml 500 ml Intake Oral 220 ml IV Total 600 ml 500 ml Stool Total 0 ml # Voids 2 2 # Bowel Movements 1 Height (Feet): 5 Height (Inches): 2.00 Weight (Pounds): 121 General Appearance: WD/WN, no apparent distress, alert Cardiovascular: normal rate Respiratory/Chest: normal breath sounds, no respiratory distress Abdominal Exam: normal bowel sounds, non tender, soft Extremities: normal range of motion, non-tender Peace Soler NP February 17, 2018 11:52
[2018-02-17 12:00] VITALS: BP 126/87
--- NOTE | 2018-02-17 13:16 | Pulmonology Progress Note ---
Assessment/Plan Problems: (1) Metabolic encephalopathy (2) Altered mental status (3) Hypokalemia (4) Psychosis (5) Severe malnutrition Assessment/Plan no new conmplains still confused calorie count psych evaluation nutrition evaluation check electrolytes d/w dr nelson she might get discharged when cleared by psychiatry Subjective ROS Limited/Unobtainable: Yes Interval Events: comfortable but confused Allergies: Coded Allergies: No Known Allergies (Unverified , 02/13/18) Objective Last 24 Hour Vital Signs Date Time Temp Pulse Resp B/P (MAP) Pulse Ox O2 Delivery O2 Flow Rate FiO2 02/17/18 08:00 98.1 89 16 127/90 98 98.1 02/17/18 04:39 98.4 116 16 119/82 97 98.4 02/17/18 00:19 98.2 140 17 139/95 96 98.2 02/16/18 20:00 98.0 136 18 154/98 95 98.0 02/16/18 16:00 99.3 11 20 133/113 100 Room Air 99.3 Intake and Output 02/16/18 02/17/18 19:00 07:00 Intake Total 820 ml 500 ml Output Total 0 ml Balance 820 ml 500 ml Intake Oral 220 ml IV Total 600 ml 500 ml Stool Total 0 ml # Voids 2 2 # Bowel Movements 1 General Appearance: WD/WN HEENT: normocephalic, atraumatic Respiratory/Chest: chest wall non-tender, lungs clear Breasts: no masses Cardiovascular: normal peripheral pulses Abdomen: normal bowel sounds, no organomegaly Genitourinary: normal external genitalia Extremities: no clubbing Skin: no rash Current Medications Medications (Trade) Dose Ordered Sig/Jarod Route PRN Reason Start Time Stop Time Status Last Admin Dose Admin Acetaminophen (Tylenol) 650 mg Q4H PRN ORAL fever 02/14/18 23:00 03/16/18 22:59 Al Hydroxide/Mg Hydroxide (Mylanta II) 30 ml Q6H PRN ORAL dyspepsia 02/14/18 23:00 03/16/18 22:59 Dextrose (Dextrose 50%) 25 ml STAT PRN IV Hypoglycemia 02/14/18 23:00 03/16/18 22:59 Dextrose (Dextrose 50%) 50 ml STAT PRN IV Hypoglycemia 02/15/18 05:30 03/16/18 05:29 Dextrose/Sodium Chloride 1,000 ml @ 75 mls/hr [id number] IV 02/17/18 23:00 03/16/18 22:59 Diphenhydramine HCl (Benadryl) 25 mg Q6H PRN ORAL Itching/Pruritis 02/14/18 23:00 03/16/18 22:59 Heparin Sodium (Porcine) (Heparin 5000 units/ml) 5,000 units EVERY 12 HOURS SUBQ 02/15/18 21:00 03/16/18 20:59 02/17/18 09:11 Insulin Aspart (NovoLOG) BEFORE MEALS AND HS SUBQ 02/15/18 06:30 03/16/18 06:29 Lorazepam (Ativan 2mg/ml 1ml) 1 mg Q4H PRN IV agitation 02/14/18 23:00 02/21/18 22:59 02/16/18 20:30 Metoclopramide HCl (Reglan) 10 mg Q6H PRN IVP servere nausea 02/14/18 23:00 03/16/18 22:59 Nitroglycerin (Ntg) 0.4 mg Q5M X 3 DOSES PRN SL Prn Chest Pain 02/14/18 21:30 03/16/18 08:29 Ondansetron HCl (Zofran) 4 mg Q6H PRN IVP Nausea & Vomiting 02/14/18 23:00 03/16/18 22:59 Pantoprazole (Protonix) 40 mg DAILY IV 02/16/18 09:00 03/17/18 08:59 02/17/18 09:10 Polyethylene Glycol (Miralax) 17 gm HSPRN PRN ORAL Constipation 02/14/18 23:00 03/16/18 22:59 Promethazine HCl 12.5 mg/Sodium Chloride 55.5 ml @ 110 mls/hr Q6H PRN IV Refractory N/V 02/14/18 23:00 03/16/18 22:59 Risperidone (RisperDAL) 2 mg BID ORAL 02/15/18 18:00 03/16/18 17:59 Temazepam (Restoril) 15 mg HSPRN PRN ORAL Insomnia 02/14/18 23:00 02/21/18 22:59 Farrukh Herndon MD February 17, 2018 13:16
--- NOTE | 2018-02-17 14:54 | General Progress Note ---
Assessment/Plan Status: stable, progressing Assessment/Plan schizophrenia -Haldol sep -5149 -Risperdal 2mg bid -psych facility Subjective Date patient seen: February 17, 2018 Neurologic/Psychiatric: Reports: anxiety, depressed, emotional problems, other - Delusional Allergies: Coded Allergies: No Known Allergies (Unverified , 02/13/18) Objective Last 24 Hour Vital Signs Date Time Temp Pulse Resp B/P (MAP) Pulse Ox O2 Delivery O2 Flow Rate FiO2 02/17/18 12:00 97.9 72 18 126/87 96 Room Air 97.9 02/17/18 08:00 98.1 89 16 127/90 98 98.1 02/17/18 04:39 98.4 116 16 119/82 97 98.4 02/17/18 00:19 98.2 140 17 139/95 96 98.2 02/16/18 20:00 98.0 136 18 154/98 95 98.0 02/16/18 16:00 99.3 11 20 133/113 100 Room Air 99.3 Intake and Output 02/16/18 02/17/18 19:00 07:00 Intake Total 820 ml 500 ml Output Total 0 ml Balance 820 ml 500 ml Intake Oral 220 ml IV Total 600 ml 500 ml Stool Total 0 ml # Voids 2 2 # Bowel Movements 1 Height (Feet): 5 Height (Inches): 2.00 Weight (Pounds): 121 General Appearance: WD/WN, no apparent distress, alert, confused - the pt calm however still refusing meds and care Farhan Mclaughlin M.D. February 17, 2018 14:54
[2018-02-17 16:31] VITALS: BP 121/86
[2018-02-17 20:20] VITALS: BP 135/87
[2018-02-18] VITALS (7 sets, daily range): BP systolic 110–141; BP diastolic 57–92
[2018-02-18] MEDS: LORazepam Inj 2mg/ml 1ml IV PRN (04:10)
[2018-02-18] MEDS: NovoLOG Insulin Flexpen SUBQ SCH ×4 (06:18→21:00)
[2018-02-18] MEDS: D5 1/2NS 1,000 ML IV SCH (06:20)
[2018-02-18] MEDS: Pantoprazole Inj IV SCH (09:00)
[2018-02-18] MEDS: Heparin 5000 units/ml inj SUBQ SCH (09:00)
[2018-02-18 09:30] LABS: BASOPHILS % (AUTO) 0.7 % (0.0-2.0); EOSINOPHILS % (AUTO) 6.3 % (0.0-3.0); HEMATOCRIT 40.4 % (37.0-47.0); LYMPHOCYTES % (AUTO) 23.8 % (20.0-45.0); MEAN CORPUSCULAR VOLUME 88 FL (80-99); NEUTROPHILS % (AUTO) 57.3 % (45.0-75.0); PLATELET COUNT 215 K/UL (150-450); RED BLOOD COUNT 4.57 M/UL (4.20-5.40); RED CELL DISTRIBUTION WIDTH 13.2 % (11.6-14.8); WHITE BLOOD COUNT 8.4 K/UL (4.8-10.8)
--- NOTE | 2018-02-18 09:45 | GI Progress Note ---
Assessment/Plan Problems: (1) Severe malnutrition ICD Codes: E43 - Unspecified severe protein-calorie malnutrition SNOMED: 19077956 (2) Dehydration ICD Codes: E86.0 - Dehydration SNOMED: 37275630 (3) Altered mental status ICD Codes: R41.82 - Altered mental status, unspecified SNOMED: 407792608 (4) Psychosis ICD Codes: F29 - Unspecified psychosis not due to a substance or known physiological condition SNOMED: 72181757 Status: unchanged Status Narrative Discussed with Dr. Velasco. Assessment/Plan CT AP reviewed >> Indeterminant proximally 5 mm calcific focus in the flakita hepatis. >> possibly a calcified granuloma or lymph node. refuses PO intake/care fu psych symptomatic treatment / supportive care zofran prn adv diet as tolerated bowel regime trend LFTs electrolyte correction fu labs outpatient GI procedures Subjective Subjective refusing PO intake Objective Last 24 Hour Vital Signs Date Time Temp Pulse Resp B/P (MAP) Pulse Ox O2 Delivery O2 Flow Rate FiO2 02/18/18 08:00 97.6 96 18 133/83 95 97.6 02/18/18 04:22 98.5 115 18 140/92 96 98.5 02/18/18 00:36 98.2 121 18 141/90 97 98.2 02/17/18 20:20 98.4 117 17 135/87 97 98.4 02/17/18 16:31 98.1 74 18 121/86 98 Room Air 98.1 02/17/18 12:00 97.9 72 18 126/87 96 Room Air 97.9 Intake and Output 02/17/18 02/18/18 19:00 07:00 Intake Total 838.75 ml Balance 838.75 ml Intake Oral 120 ml IV Total 718.75 ml # Voids 3 Laboratory Tests Test 02/18/18 09:15 White Blood Count 8.4 K/UL (4.8-10.8) Red Blood Count 4.57 M/UL (4.20-5.40) Hemoglobin 13.0 G/DL (12.0-16.0) Hematocrit 40.4 % (37.0-47.0) Mean Corpuscular Volume 88 FL (80-99) Mean Corpuscular Hemoglobin 28.4 PG (27.0-31.0) Mean Corpuscular Hemoglobin Concent 32.2 G/DL (32.0-36.0) Red Cell Distribution Width 13.2 % (11.6-14.8) Platelet Count 215 K/UL (150-450) Mean Platelet Volume 8.1 FL (6.5-10.1) Neutrophils (%) (Auto) 57.3 % (45.0-75.0) Lymphocytes (%) (Auto) 23.8 % (20.0-45.0) Monocytes (%) (Auto) 12.0 % (1.0-10.0) H Eosinophils (%) (Auto) 6.3 % (0.0-3.0) H Basophils (%) (Auto) 0.7 % (0.0-2.0) Sodium Level Pending Potassium Level Pending Chloride Level Pending Carbon Dioxide Level Pending Blood Urea Nitrogen Pending Creatinine Pending Estimat Glomerular Filtration Rate Pending Glucose Level Pending Calcium Level Pending Phosphorus Level Pending Magnesium Level Pending Total Bilirubin Pending Aspartate Amino Transf (AST/SGOT) Pending Alanine Aminotransferase (ALT/SGPT) Pending Alkaline Phosphatase Pending Total Protein Pending Albumin Pending Globulin Pending Height (Feet): 5 Height (Inches): 2.00 Weight (Pounds): 121 General Appearance: WD/WN, no apparent distress, alert Cardiovascular: normal rate Respiratory/Chest: normal breath sounds, no respiratory distress Abdominal Exam: normal bowel sounds, non tender, soft Extremities: normal range of motion, non-tender Peace Soler NP February 18, 2018 09:45
[2018-02-18 09:59] LABS: ALANINE AMINOTRANSFERASE 43 U/L (12-78); ALBUMIN 2.2 G/DL (3.4-5.0); ALBUMIN/GLOBULIN RATIO 0.6 (1.0-2.7); ALKALINE PHOSPHATASE 70 U/L (46-116); ANION GAP 7 mmol/L (5-15); ASPARTATE AMINO TRANSFERASE 37 U/L (15-37); BILIRUBIN,TOTAL 0.9 MG/DL (0.2-1.0); BLOOD UREA NITROGEN 3 mg/dL (7-18); CALCIUM 8.7 MG/DL (8.5-10.1); CARBON DIOXIDE 27 MMOL/L (21-32); CHLORIDE 104 MMOL/L (98-107); CREATININE 0.7 MG/DL (0.55-1.30); PHOSPHORUS 1.9 MG/DL (2.5-4.9); POTASSIUM 2.8 MMOL/L (3.5-5.1); SODIUM 138 MMOL/L (136-145)
[2018-02-18] MEDS ORDERED: D5 1/2NS w/KCl 20mEq 1,000 ML IV SCH (10:30)
--- NOTE | 2018-02-18 11:35 | Pulmonology Progress Note ---
Assessment/Plan Problems: (1) Metabolic encephalopathy (2) Altered mental status (3) Hypokalemia (4) Psychosis (5) Severe malnutrition Assessment/Plan supplement electrolytes no new complains still confused calorie count psych evaluation nutrition evaluation check electrolytes d/w dr nelson she might get discharged when cleared by psychiatry Subjective ROS Limited/Unobtainable: No Constitutional: Reports: no symptoms HEENT: Repors: no symptoms Respiratory: Reports: no symptoms Allergies: Coded Allergies: No Known Allergies (Unverified , 02/13/18) Objective Last 24 Hour Vital Signs Date Time Temp Pulse Resp B/P (MAP) Pulse Ox O2 Delivery O2 Flow Rate FiO2 02/18/18 08:00 97.6 96 18 133/83 95 97.6 02/18/18 04:22 98.5 115 18 140/92 96 98.5 02/18/18 00:36 98.2 121 18 141/90 97 98.2 02/17/18 20:20 98.4 117 17 135/87 97 98.4 02/17/18 16:31 98.1 74 18 121/86 98 Room Air 98.1 02/17/18 12:00 97.9 72 18 126/87 96 Room Air 97.9 Intake and Output 02/17/18 02/18/18 19:00 07:00 Intake Total 838.75 ml Balance 838.75 ml Intake Oral 120 ml IV Total 718.75 ml # Voids 3 General Appearance: WD/WN HEENT: normocephalic, atraumatic Respiratory/Chest: chest wall non-tender, lungs clear Breasts: no masses Cardiovascular: normal peripheral pulses Abdomen: normal bowel sounds, soft, non tender Genitourinary: normal external genitalia Extremities: no cyanosis Skin: no rash 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 Lymphatic: no neck adenopathy Laboratory Tests 02/18/18 09:15: White Blood Count 8.4, Red Blood Count 4.57, Hemoglobin 13.0, Hematocrit 40.4, Mean Corpuscular Volume 88, Mean Corpuscular Hemoglobin 28.4, Mean Corpuscular Hemoglobin Concent 32.2, Red Cell Distribution Width 13.2, Platelet Count 215, Mean Platelet Volume 8.1, Neutrophils (%) (Auto) 57.3, Lymphocytes (%) (Auto) 23.8, Monocytes (%) (Auto) 12.0H, Eosinophils (%) (Auto) 6.3H, Basophils (%) ( Auto) 0.7, Sodium Level 138, Potassium Level 2.8L, Chloride Level 104, Carbon Dioxide Level 27, Anion Gap 7, Blood Urea Nitrogen 3L, Creatinine 0.7, Estimat Glomerular Filtration Rate > 60, Glucose Level 222H, Calcium Level 8.7, Phosphorus Level 1.9L, Magnesium Level 1.2L, Total Bilirubin 0.9, Aspartate Amino Transf (AST/SGOT) 37, Alanine Aminotransferase (ALT/SGPT) 43, Alkaline Phosphatase 70, Total Protein 5.9L, Albumin 2.2L, Globulin 3.7, Albumin/ Globulin Ratio 0.6L Current Medications Medications (Trade) Dose Ordered Sig/Jarod Route PRN Reason Start Time Stop Time Status Last Admin Dose Admin Acetaminophen (Tylenol) 650 mg Q4H PRN ORAL fever 02/14/18 23:00 03/16/18 22:59 Al Hydroxide/Mg Hydroxide (Mylanta II) 30 ml Q6H PRN ORAL dyspepsia 02/14/18 23:00 03/16/18 22:59 Dextrose (Dextrose 50%) 25 ml STAT PRN IV Hypoglycemia 02/14/18 23:00 03/16/18 22:59 Dextrose (Dextrose 50%) 50 ml STAT PRN IV Hypoglycemia 02/15/18 05:30 03/16/18 05:29 Dextrose/ Electrolytes 1,000 ml @ 75 mls/hr [id number] IV 02/18/18 10:30 03/20/18 10:29 Diphenhydramine HCl (Benadryl) 25 mg Q6H PRN ORAL Itching/Pruritis 02/14/18 23:00 03/16/18 22:59 Heparin Sodium (Porcine) (Heparin 5000 units/ml) 5,000 units EVERY 12 HOURS SUBQ 02/15/18 21:00 03/16/18 20:59 02/18/18 09:00 Insulin Aspart (NovoLOG) BEFORE MEALS AND HS SUBQ 02/15/18 06:30 03/16/18 06:29 02/18/18 06:18 Lorazepam (Ativan 2mg/ml 1ml) 1 mg Q4H PRN IV agitation 02/14/18 23:00 02/21/18 22:59 02/18/18 04:10 Metoclopramide HCl (Reglan) 10 mg Q6H PRN IVP servere nausea 02/14/18 23:00 03/16/18 22:59 Nitroglycerin (Ntg) 0.4 mg Q5M X 3 DOSES PRN SL Prn Chest Pain 02/14/18 21:30 03/16/18 08:29 Ondansetron HCl (Zofran) 4 mg Q6H PRN IVP Nausea & Vomiting 02/14/18 23:00 03/16/18 22:59 Pantoprazole (Protonix) 40 mg DAILY IV 02/16/18 09:00 03/17/18 08:59 02/18/18 09:00 Polyethylene Glycol (Miralax) 17 gm HSPRN PRN ORAL Constipation 02/14/18 23:00 03/16/18 22:59 Promethazine HCl 12.5 mg/Sodium Chloride 55.5 ml @ 110 mls/hr Q6H PRN IV Refractory N/V 02/14/18 23:00 03/16/18 22:59 Risperidone (RisperDAL) 2 mg BID ORAL 02/15/18 18:00 03/16/18 17:59 02/18/18 09:00 Temazepam (Restoril) 15 mg HSPRN PRN ORAL Insomnia 02/14/18 23:00 02/21/18 22:59 Farrukh Herndon MD February 18, 2018 11:35
[2018-02-18] MEDS ORDERED: Sodium Phosphate 30 MM in NS 275 ML IV SCH (13:30)
--- NOTE | 2018-02-18 14:23 | Psych Consult Progress Note ---
Psych Consult Progress Note Consult 02/16/18 schizophrenia -Haldol sep -Risperdal 2mg bid -psych facility Vital Signs Last 24 Hour Vital Signs Date Time Temp Pulse Resp B/P (MAP) Pulse Ox O2 Delivery O2 Flow Rate FiO2 02/18/18 12:00 97.2 97 19 123/62 97 97.2 02/18/18 08:00 97.6 96 18 133/83 95 97.6 02/18/18 04:22 98.5 115 18 140/92 96 98.5 02/18/18 00:36 98.2 121 18 141/90 97 98.2 02/17/18 20:20 98.4 117 17 135/87 97 98.4 02/17/18 16:31 98.1 74 18 121/86 98 Room Air 98.1 Labs Laboratory Tests Test 02/18/18 09:15 White Blood Count 8.4 K/UL (4.8-10.8) Red Blood Count 4.57 M/UL (4.20-5.40) Hemoglobin 13.0 G/DL (12.0-16.0) Hematocrit 40.4 % (37.0-47.0) Mean Corpuscular Volume 88 FL (80-99) Mean Corpuscular Hemoglobin 28.4 PG (27.0-31.0) Mean Corpuscular Hemoglobin Concent 32.2 G/DL (32.0-36.0) Red Cell Distribution Width 13.2 % (11.6-14.8) Platelet Count 215 K/UL (150-450) Mean Platelet Volume 8.1 FL (6.5-10.1) Neutrophils (%) (Auto) 57.3 % (45.0-75.0) Lymphocytes (%) (Auto) 23.8 % (20.0-45.0) Monocytes (%) (Auto) 12.0 % (1.0-10.0) H Eosinophils (%) (Auto) 6.3 % (0.0-3.0) H Basophils (%) (Auto) 0.7 % (0.0-2.0) Sodium Level 138 MMOL/L (136-145) Potassium Level 2.8 MMOL/L (3.5-5.1) L Chloride Level 104 MMOL/L (98-107) Carbon Dioxide Level 27 MMOL/L (21-32) Anion Gap 7 mmol/L (5-15) Blood Urea Nitrogen 3 mg/dL (7-18) L Creatinine 0.7 MG/DL (0.55-1.30) Estimat Glomerular Filtration Rate > 60 mL/min (>60) Glucose Level 222 MG/DL (74-106) H Calcium Level 8.7 MG/DL (8.5-10.1) Phosphorus Level 1.9 MG/DL (2.5-4.9) L Magnesium Level 1.2 MG/DL (1.8-2.4) L Total Bilirubin 0.9 MG/DL (0.2-1.0) Aspartate Amino Transf (AST/SGOT) 37 U/L (15-37) Alanine Aminotransferase (ALT/SGPT) 43 U/L (12-78) Alkaline Phosphatase 70 U/L (46-116) Total Protein 5.9 G/DL (6.4-8.2) L Albumin 2.2 G/DL (3.4-5.0) L Globulin 3.7 g/dL Albumin/Globulin Ratio 0.6 (1.0-2.7) L Medications Current Medications Medications (Trade) Dose Ordered Sig/Jarod Route PRN Reason Start Time Stop Time Status Last Admin Dose Admin Acetaminophen (Tylenol) 650 mg Q4H PRN ORAL fever 02/14/18 23:00 03/16/18 22:59 Al Hydroxide/Mg Hydroxide (Mylanta II) 30 ml Q6H PRN ORAL dyspepsia 02/14/18 23:00 03/16/18 22:59 Dextrose (Dextrose 50%) 25 ml STAT PRN IV Hypoglycemia 02/14/18 23:00 03/16/18 22:59 Dextrose (Dextrose 50%) 50 ml STAT PRN IV Hypoglycemia 02/15/18 05:30 03/16/18 05:29 Dextrose/ Electrolytes 1,000 ml @ 75 mls/hr [id number] IV 02/18/18 10:30 03/20/18 10:29 02/18/18 12:10 Diphenhydramine HCl (Benadryl) 25 mg Q6H PRN ORAL Itching/Pruritis 02/14/18 23:00 03/16/18 22:59 Heparin Sodium (Porcine) (Heparin 5000 units/ml) 5,000 units EVERY 12 HOURS SUBQ 02/15/18 21:00 03/16/18 20:59 02/18/18 09:00 Insulin Aspart (NovoLOG) BEFORE MEALS AND HS SUBQ 02/15/18 06:30 03/16/18 06:29 02/18/18 11:30 Lorazepam (Ativan 2mg/ml 1ml) 1 mg Q4H PRN IV agitation 02/14/18 23:00 02/21/18 22:59 02/18/18 04:10 Magnesium Sulfate 100 ml @ 100 mls/hr Q1H IVPB 02/18/18 12:30 02/18/18 14:29 02/18/18 13:34 Metoclopramide HCl (Reglan) 10 mg Q6H PRN IVP servere nausea 02/14/18 23:00 03/16/18 22:59 Nitroglycerin (Ntg) 0.4 mg Q5M X 3 DOSES PRN SL Prn Chest Pain 02/14/18 21:30 03/16/18 08:29 Ondansetron HCl (Zofran) 4 mg Q6H PRN IVP Nausea & Vomiting 02/14/18 23:00 03/16/18 22:59 Pantoprazole (Protonix) 40 mg DAILY IV 02/16/18 09:00 03/17/18 08:59 02/18/18 09:00 Polyethylene Glycol (Miralax) 17 gm HSPRN PRN ORAL Constipation 02/14/18 23:00 03/16/18 22:59 Potassium Chloride 40 meq/ Sodium Chloride 570 ml @ 142.5 mls/ hr ONCE IVPB 02/18/18 16:00 02/18/18 17:30 Promethazine HCl 12.5 mg/Sodium Chloride 55.5 ml @ 110 mls/hr Q6H PRN IV Refractory N/V 02/14/18 23:00 03/16/18 22:59 Risperidone (RisperDAL) 2 mg BID ORAL 02/15/18 18:00 03/16/18 17:59 02/18/18 09:00 Sodium Phosphate 30 mm/Sodium Chloride 285 ml @ 47.5 mls/hr ONCE IV 02/18/18 13:30 02/18/18 15:00 02/18/18 13:34 Temazepam (Restoril) 15 mg HSPRN PRN ORAL Insomnia 02/14/18 23:00 02/21/18 22:59 Farhan Mclaughlin M.D. February 18, 2018 14:23
--- NOTE | 2018-02-18 14:23 | General Progress Note ---
Assessment/Plan Status: stable, progressing Assessment/Plan schizophrenia -Haldol sep -Risperdal 2mg bid -psych facility Subjective Date patient seen: February 18, 2018 Neurologic/Psychiatric: Reports: anxiety, depressed, emotional problems Allergies: Coded Allergies: No Known Allergies (Unverified , 02/13/18) Subjective the pt refusing to eat believes her food was poisoned Objective Last 24 Hour Vital Signs Date Time Temp Pulse Resp B/P (MAP) Pulse Ox O2 Delivery O2 Flow Rate FiO2 02/18/18 12:00 97.2 97 19 123/62 97 97.2 02/18/18 08:00 97.6 96 18 133/83 95 97.6 02/18/18 04:22 98.5 115 18 140/92 96 98.5 02/18/18 00:36 98.2 121 18 141/90 97 98.2 02/17/18 20:20 98.4 117 17 135/87 97 98.4 02/17/18 16:31 98.1 74 18 121/86 98 Room Air 98.1 Intake and Output 02/17/18 02/18/18 19:00 07:00 Intake Total 838.75 ml Balance 838.75 ml Intake Oral 120 ml IV Total 718.75 ml # Voids 3 Laboratory Tests 02/18/18 09:15: White Blood Count 8.4, Red Blood Count 4.57, Hemoglobin 13.0, Hematocrit 40.4, Mean Corpuscular Volume 88, Mean Corpuscular Hemoglobin 28.4, Mean Corpuscular Hemoglobin Concent 32.2, Red Cell Distribution Width 13.2, Platelet Count 215, Mean Platelet Volume 8.1, Neutrophils (%) (Auto) 57.3, Lymphocytes (%) (Auto) 23.8, Monocytes (%) (Auto) 12.0H, Eosinophils (%) (Auto) 6.3H, Basophils (%) ( Auto) 0.7, Sodium Level 138, Potassium Level 2.8L, Chloride Level 104, Carbon Dioxide Level 27, Anion Gap 7, Blood Urea Nitrogen 3L, Creatinine 0.7, Estimat Glomerular Filtration Rate > 60, Glucose Level 222H, Calcium Level 8.7, Phosphorus Level 1.9L, Magnesium Level 1.2L, Total Bilirubin 0.9, Aspartate Amino Transf (AST/SGOT) 37, Alanine Aminotransferase (ALT/SGPT) 43, Alkaline Phosphatase 70, Total Protein 5.9L, Albumin 2.2L, Globulin 3.7, Albumin/ Globulin Ratio 0.6L Height (Feet): 5 Height (Inches): 2.00 Weight (Pounds): 121 General Appearance: WD/WN, no apparent distress, alert, confused, agitated Farhan Mclaughlin M.D. February 18, 2018 14:23
--- NOTE | 2018-02-18 15:00 | Cardiology Report ---
APPROVED REPORT EKG Measurement Heart [id number] MI 130P72 [id number] Normal sinus rhythm Low voltage QRS Nonspecific ST abnormality Prolonged QT Abnormal ECG
--- NOTE | 2018-02-18 15:04 | Consultation ---
Consult Note Consult Note asked to eval for electrolyte imbalance- Patient is a 57-year-old female who had been sent in from the nursing facility. Patient had recently been discharged from the hospital back to her nursing facility.The patient vomited one time at in route as well as one time at the facility. The patient have any black or bloody emesis. The patient had prior history of psychiatric disease as well as hyponatremia. The patient reportedly had some changes in her mental status. Hx Cardiac Problems: No - miscle weakness, lack of coorderination Hx Hypertension: Yes Hx Diabetes: Yes History Of Psychiatric Problem: Yes - bi-polar examined- uncoaporative data reviewed . Assessment/Plan sever electrolyte imbalance Malnutrition Psychosis Encephalopathy Plan: K and Mag and Phos- Megace Low dose Lopressor monitor KANA Marino February 18, 2018 15:04
[2018-02-18] MEDS ORDERED: Metoprolol Tartrate 12.5mg TAB ORAL ONE (16:00)
[2018-02-18] MEDS ORDERED: Potassium Chloride 40 MEQ in Sodium Chloride 500ML 550 ML IVPB SCH (16:00)
[2018-02-18] MEDS ORDERED: Megace 400mg/10ml Susp ORAL SCH (18:00)
[2018-02-18] MEDS ORDERED: Metoprolol Tartrate 12.5mg TAB ORAL SCH (21:00)
[2018-02-18] MEDS ORDERED: D5 1/2NS 1000ml IV ONE (21:44)
[2018-02-18] MEDS ORDERED: Tubing IV Secondary IV ONE (21:44)
--- NOTE | 2018-02-20 12:53 | Discharge Summary ---
Discharge Summary Discharge Summary Discharge Summary DATE OF ADMISSION: 02/13/2018 DATE OF DISCHARGE: 02/18/2018 CONSULTANTS: Dr. Jeison Velasco [facility] HOSPITAL COURSE: Patient is a 57-year-old female, with history of schizophrenia, bipolar disorder , COPD was sent in from nursing facility for evaluation of multiple episodes of vomiting. Patient was reported to have black or bloody emesis. There was also a change in her mental status. On evaluation at ED, blood work showed severe hypokalemia. Potassium was 2.5. She was given IV potassium replacement. Head CT showed no evidence of acute CVA or hemorrhage. Urine toxicology was negative, serum alcohol less than 3, salicylate 1.6. She was admitted for evaluation of acute encephalopathy and hypokalemia. She had nausea and vomiting. LFTs were normal. CT of the abdomen and pelvis showed an indeterminant approximately 5 mm calcific focus in the flakita hepatis, possibly a calcified granuloma or a lymph node. He was given symptomatic treatment and supportive care. He was given Zofran prn and bowel regimen. Patient was refusing care. Patient was noncompliant and was refusing to eat or drink. Psychiatric evaluation was done. She was diagnosed with schizoaffective disorder and was given Risperdal and Haldol, Ativan prn. Patient continued to be confused and was delusional. Risperdal was increased to 2 mg by mouth twice a day. She was placed on 5150. She had electrolyte imbalance and was given supplements. She was eventually started on metoprolol tartrate. She was given a admission sulfate and sodium phosphate. Patient was eventually transferred to [facility] psychiatric morrow. FINAL DIAGNOSES: Metabolic encephalopathy present on admission Moderate protein calorie malnutrition present on admission Schizophrenia Hypokalemia Hypomagnesemia Hypophosphatemia Dehydration DISPOSITION: Patient was transferred to a psychiatric facility. I have been assigned to dictate discharge summary on this account, and I was not involved in the patient's management. Latasha Whiteside NP February 20, 2018 12:53
== END 2018-02-18 21:45 | DRG 640 ==
LOC: EDBD 16:35 → EMR 17:35 → 2E 22:53 → EDBEDREQ 23:17 → 3E 02-14 21:36
DX: E87.6 Hypokalemia (principal); G93.41 Metabolic encephalopathy; E44.0 Moderate protein-calorie malnutrition; E86.0 Dehydration; F29 Unspecified psychosis not due to a substance or known physiological condition; F20.9 Schizophrenia, unspecified; F31.9 Bipolar disorder, unspecified; Z91.19 Patient's noncompliance with other medical treatment and regimen; E83.42 Hypomagnesemia; E83.39 Other disorders of phosphorus metabolism; J44.9 Chronic obstructive pulmonary disease, unspecified; Z66 Do not resuscitate
CPT/HCPCS: 36415; 70450; 74176; 76700; 80053; 80307; 80329; 82248; 82962; 83735; 84100; 84443; 85025; 86140; 87081; 93005; 99285; J1815; J8499

== ENCOUNTER 2018-06-28 14:09 | Inpatient (IN) | payer MEDICARE, MEDICAID ==
[~2018-06-28] VITALS: Ht 157.5 cm; Wt 49.0 kg
[~2018-06-28 14:09] MED LIST: DOCUSATE SODIU100 MG ORAL; EFFER-K 20 MEQ20 MEQ PO; GLUCAGEN1 M1 IJ; HALOPERIDOL5 MG/1 M1 ORAL; LORAZEPAM2 MG/1 M1 IV; METFORMIN HCL500 M1 ORAL; XOPENEX0.63 MG/3 HHN; ZYPREXA10 MG ORAL
[2018-06-28 14:10] VITALS: BP 126/66
--- NOTE | 2018-06-28 14:14 | Emergency Room Report ---
History of Present Illness General Chief Complaint: General Complaint Source: Patient, EMS, PMD Present Illness HPI Patient was sent in for psychiatric evaluation. The patient was argumentative with staff and aggressive. She is supposed be taking Haldol. She denies suicidal or homicidal ideation at this time. She has refused to eat for at least a day. She won't say why. Allegedly she has been taking her medications. The patient states she's hungry and feels dizzy. She denies pain. No nausea vomiting diarrhea dysuria rashes change in vision shortness of breath cough joint pain. Patient is diabetic. H/O bipolar disorder, schizophrenia, depression. H/O hyponatremia Allergies: Coded Allergies: No Known Allergies (Unverified , 02/13/18) Patient History Past Medical History: see triage record, old chart reviewed Social History: Denies: smoking, alcohol use, drug use Social History Narrative board and care facility Last Menstrual Period: NA Now: No Reviewed Nursing Documentation: PMH: Agreed; PSxH: Agreed Nursing Documentation-PMH Past Medical History: No History, Except For Hx Cardiac Problems: No - miscle weakness, lack of coorderination Hx Hypertension: Yes Hx Pacemaker: No - hypernatremia Hx COPD: Yes Hx Diabetes: Yes Review of Systems All Other Systems: negative except mentioned in HPI Physical Exam Vital Signs Date Time Temp Pulse Resp B/P (MAP) Pulse Ox O2 Delivery O2 Flow Rate FiO2 06/28/18 14:03 98.0 64 18 126/66 98 Room Air 98.1 Sp02 EP Interpretation: reviewed, normal General Appearance: well appearing, no apparent distress, GCS 15, thin Head: normocephalic Eyes: bilateral eye normal inspection, bilateral eye PERRL ENT: moist mucus membranes Neck: supple Respiratory: lungs clear, normal breath sounds Cardiovascular #1: regular rate, rhythm Cardiovascular #2: 2+ radial (R) Gastrointestinal: normal inspection, normal bowel sounds, non tender, no mass, non-distended Musculoskeletal: back normal, gait/station normal, normal range of motion Neurologic: alert, oriented x3, motor strength/tone normal, DTRs symmetric, sensory intact, cerebellar normal, speech normal Psychiatric: no suicidal/homicidal ideation, depressed affect Skin: normal inspection, warm/dry Medical Decision Making Diagnostic Impression: Primary Impression: Failure to thrive Qualified Codes: R62.7 - Adult failure to thrive Additional Impressions: UTI (urinary tract infection) Qualified Codes: N30.00 - Acute cystitis without hematuria Dehydration Schizoaffective disorder, bipolar type ER Course Patient presents with agitation with history of schizophrenia bipolar disorder. Differential includes exacerbation of underlying psychiatric illness, noncompliance, electrolyte abnormality amongst others. The patient will be evaluated with EKG and labs. Patient will receive IV hydration and treatment as necessary. EKG no injury. Labs with pyuria. Rocephin begun. Patient somewhat improved, but needing further psychiatric and medical evaluation. Admitted medically Dr. Herndon. Dr. Mclaughlin notified for consultation. Laboratory Tests Test 06/28/18 14:25 06/28/18 14:36 Urine Color Brown Urine Appearance Slightly cloudy Urine pH 5 (4.5-8.0) Urine Specific [place] 1.025 (1.005-1.035) Urine Protein 2+ (NEGATIVE) H Urine Glucose (UA) Negative (NEGATIVE) Urine Ketones 2+ (NEGATIVE) H Urine Blood Negative (NEGATIVE) Urine Nitrite Negative (NEGATIVE) Urine Bilirubin Negative (NEGATIVE) Urine Urobilinogen 1 MG/DL (0.0-1.0) H Urine Leukocyte Esterase 2+ (NEGATIVE) H Urine RBC 5-10 /HPF (0 - 2) H Urine WBC 10-15 /HPF (0 - 2) H Urine Squamous Epithelial Cells Many /LPF (NONE/OCC) H Urine Bacteria Many /HPF (NONE) H Urine Mucus Many /LPF (NONE/OCC) H Urine Opiates Screen Negative (NEGATIVE) Urine Barbiturates Screen Negative (NEGATIVE) Phencyclidine (PCP) Screen Negative (NEGATIVE) Urine Amphetamines Screen Negative (NEGATIVE) Urine Benzodiazepines Screen Negative (NEGATIVE) Urine Cocaine Screen Negative (NEGATIVE) Urine Marijuana (THC) Screen Negative (NEGATIVE) White Blood Count 10.8 K/UL (4.8-10.8) Red Blood Count 5.36 M/UL (4.20-5.40) Hemoglobin 15.3 G/DL (12.0-16.0) Hematocrit 48.3 % (37.0-47.0) H Mean Corpuscular Volume 90 FL (80-99) Mean Corpuscular Hemoglobin 28.5 PG (27.0-31.0) Mean Corpuscular Hemoglobin Concent 31.6 G/DL (32.0-36.0) L Red Cell Distribution Width 11.7 % (11.6-14.8) Platelet Count 267 K/UL (150-450) Mean Platelet Volume 6.9 FL (6.5-10.1) Neutrophils (%) (Auto) 59.0 % (45.0-75.0) Lymphocytes (%) (Auto) 28.8 % (20.0-45.0) Monocytes (%) (Auto) 9.2 % (1.0-10.0) Eosinophils (%) (Auto) 2.2 % (0.0-3.0) Basophils (%) (Auto) 0.9 % (0.0-2.0) Sodium Level 143 MMOL/L (136-145) Potassium Level 3.9 MMOL/L (3.5-5.1) Chloride Level 104 MMOL/L (98-107) Carbon Dioxide Level 31 MMOL/L (21-32) Anion Gap 8 mmol/L (5-15) Blood Urea Nitrogen 19 mg/dL (7-18) H Creatinine 0.7 MG/DL (0.55-1.30) Estimate Glomerular Filtration Rate > 60 mL/min (>60) Glucose Level 85 MG/DL (74-106) Calcium Level 9.8 MG/DL (8.5-10.1) Total Bilirubin 0.3 MG/DL (0.2-1.0) Aspartate Amino Transferase (AST) 23 U/L (15-37) Alanine Aminotransferase (ALT) 20 U/L (12-78) Alkaline Phosphatase 91 U/L (46-116) Total Creatine Kinase 26 U/L (26-308) Troponin I 0.000 ng/mL (0.000-0.056) Total Protein 8.4 G/DL (6.4-8.2) H Albumin 3.9 G/DL (3.4-5.0) Globulin 4.5 g/dL Albumin/Globulin Ratio 0.9 (1.0-2.7) L Salicylates Level 1.1 ug/mL (2.8-20) L Acetaminophen Level < 2 MCG/ML (10-30) L Serum Alcohol < 3 mg/dL EKG Diagnostic Results Rate: normal Rhythm: NSR ST Segments: no acute changes Rhythm Strip Diag. Results EP Interpretation: yes Rhythm: NSR, no PVC's, no ectopy Last Vital Signs Date Time Temp Pulse Resp B/P (MAP) Pulse Ox O2 Delivery O2 Flow Rate FiO2 06/28/18 21:00 Room Air 06/28/18 20:00 97.7 67 17 98/66 (77) 99 97.7 Status: improved Disposition: ADMITTED INPATIENT Condition: Serious Jeyson Feliciano M.D. Jun 28, 2018 14:14
[2018-06-28 14:55] LABS: APPEARANCE,URINE SLIGHTLY CLOUDY; BILIRUBIN, URINE NEGATIVE (NEGATIVE); COLOR,URINE BROWN; GLUCOSE, URINE (UA) NEGATIVE (NEGATIVE); KETONES,URINE 2+ (NEGATIVE); LEUKOCYTE ESTERASE ,URINE 2+ (NEGATIVE); NITRITE,URINE NEGATIVE (NEGATIVE); PH,URINE 5 (4.5-8.0); PROTEIN,URINE 2+ (NEGATIVE); UROBILINOGEN,URINE 1 MG/DL (0.0-1.0)
[2018-06-28 14:58] LABS: BASOPHILS % (AUTO) 0.9 % (0.0-2.0); EOSINOPHILS % (AUTO) 2.2 % (0.0-3.0); HEMATOCRIT 48.3 % (37.0-47.0); HEMOGLOBIN 15.3 G/DL (12.0-16.0); LYMPHOCYTES % (AUTO) 28.8 % (20.0-45.0); MEAN CORPUSCULAR VOLUME 90 FL (80-99); MONOCYTES % (AUTO) 9.2 % (1.0-10.0); PLATELET COUNT 267 K/UL (150-450); RED BLOOD COUNT 5.36 M/UL (4.20-5.40); RED CELL DISTRIBUTION WIDTH 11.7 % (11.6-14.8); WHITE BLOOD COUNT 10.8 K/UL (4.8-10.8)
[2018-06-28 15:03] LABS: ANION GAP 8 mmol/L (5-15); BLOOD UREA NITROGEN 19 mg/dL (7-18); CALCIUM 9.8 MG/DL (8.5-10.1); CARBON DIOXIDE 31 MMOL/L (21-32); CHLORIDE 104 MMOL/L (98-107); CREATININE 0.7 MG/DL (0.55-1.30); POTASSIUM 3.9 MMOL/L (3.5-5.1); SODIUM 143 MMOL/L (136-145)
[2018-06-28 15:18] LABS: ALANINE AMINOTRANSFERASE 20 U/L (12-78); ALBUMIN 3.9 G/DL (3.4-5.0); ALBUMIN/GLOBULIN RATIO 0.9 (1.0-2.7); ALKALINE PHOSPHATASE 91 U/L (46-116); ASPARTATE AMINO TRANSFERASE 23 U/L (15-37); BILIRUBIN,TOTAL 0.3 MG/DL (0.2-1.0); CREATINE KINASE 26 U/L (26-308)
[2018-06-28 16:00] VITALS: BP 122/63
[2018-06-28] MEDS ORDERED: PRO-STAT LIQUID30 ML ORAL (16:12)
[2018-06-28] MEDS ORDERED: MIRTAZAPINE7.5 MG ORAL (16:12)
[2018-06-28] MEDS ORDERED: VALPROIC A250 MG/5 M PO (16:12)
[2018-06-28] MEDS ORDERED: FLEET ENEMA133 ML RECTAL (16:12)
[2018-06-28] MEDS ORDERED: MULTIVITAMINS1 EAC2 ORAL (16:12)
[2018-06-28] MEDS ORDERED: GERI-LANTA LIQ355 ML PO (16:12)
[2018-06-28] MEDS ORDERED: MILK OF MA400 MG/51 ORAL (16:12)
[2018-06-28] MEDS ORDERED: METAMUCIL1 PK1 ORAL (16:12)
[2018-06-28] MEDS ORDERED: CRANBERRY450 M4 PO (16:12)
[2018-06-28] MEDS ORDERED: cefTRIAXone 1 GM in NS 55 ML IVPB ONE (16:15)
[2018-06-28] MEDS ORDERED: Albuterol/Ipratropium 3ml neb HHN PRN (17:15)
[2018-06-28] MEDS ORDERED: Milk of Magnesia 30ml Ud ORAL PRN (17:15)
[2018-06-28] MEDS ORDERED: Miralax 17gm pkt ORAL PRN ×2 (17:15→17:30)
[2018-06-28] MEDS ORDERED: Morphine Sulfate 2mg/ml Inj IVP PRN (17:15)
[2018-06-28] MEDS ORDERED: Vancomycin 1 GM in D5W 275 ML IVPB SCH ×2 (18:00→20:00)
[2018-06-28] MEDS ORDERED: LORazepam Inj 2mg/ml 1ml IV PRN (18:00)
[2018-06-28 20:00] VITALS: BP 98/66
[2018-06-28] MEDS: Docusate 250mg cap ORAL SCH (20:09)
[2018-06-28] MEDS: Cefepime HCl 2 GM in D5W 110 ML IV SCH (21:43)
[2018-06-28] MEDS: Heparin 5000 units/ml inj SUBQ SCH (22:11)
[2018-06-29 04:19] VITALS: BP 103/51
[2018-06-29 05:48] VITALS: BP 96/50
[2018-06-29 08:00] VITALS: BP 103/60
[2018-06-29] MEDS: Docusate 250mg cap ORAL SCH ×3 (08:16→18:00)
[2018-06-29] MEDS: Cefepime HCl 2 GM in D5W 110 ML IV SCH (08:16)
[2018-06-29] MEDS: Heparin 5000 units/ml inj SUBQ SCH ×2 (08:18→21:09)
--- NOTE | 2018-06-29 08:28 | History and Physical ---
History of Present Illness General Date patient seen: Jun 29, 2018 Time patient seen: 07:45 Reason for Hospitalization: altered, combative Present Illness HPI 57 years old female with past medical history of COPD, hypertension, hyponatremia, diabetes mellitus, schizoaffective disorder bipolar type, was sent from the senior living facility for evaluation . Patient was argumentative with staff and aggressive. She denied suicidal or homicidal ideation . She has refused to eat for at least a day. She denied abdominal pain, and admitted to dysuria and frequency, no blood in urine, Upon arrival stable vital signs, no fever. Laboratory workup revealed no leukocytosis, stable hemoglobin and hematocrit. BUN 19, creatinine 0.7. Troponin negative. Toxicology screen negative EKG [facility], no acute ischemic changes. Urinalysis with evidence of UTI. Patient admitted for further management Allergies: Coded Allergies: No Known Allergies (Unverified , 02/13/18) Medication History Scheduled Cranberry Fruit Concentrate (Cranberry), 900 MG PO DAILY, (Reported) Docusate Sodium* (Docusate Sodium*), 250 MG ORAL TWICE A DAY, (Reported) Haloperidol Lactate (Haloperidol Lactate), 15 MG ORAL BID, (Reported) Mag Hydrox/Al Hydrox/Simeth (Maria R-Lanta Liquid), 30 ML PO Q4HR, (Reported) Magnesium Hydroxide* (Milk Of Magnesia*), 30 ML ORAL DAILY, (Reported) Mirtazapine* (Mirtazapine*), 30 MG ORAL BEDTIME, (Reported) Multivitamins* (Multivitamins*), 1 TAB ORAL DAILY, (Reported) Na Phos,M-B/Na Phos,Di-Ba* (Fleet Enema*), 1 UNIT RECTAL PRN, (Reported) Valproate Sodium (Valproic Acid), 250 MG PO BID, (Reported) Discontinued Medications Amino Acids/Protein Hydrolys (Pro-Stat Liquid), 30 ML ORAL DAILY, (Reported) Discontinued Reason: MD discontinued med Glucagon,Human Recombinant (Glucagen), 1 MG IJ, (Reported) Discontinued Reason: MD discontinued med Levalbuterol Hcl (Xopenex*), 0.63 MG HHN Q8HR, (Reported) Discontinued Reason: MD discontinued med Lorazepam* (Lorazepam*), 2 MG IV Q8HR, (Reported) Discontinued Reason: MD discontinued med Metformin Hcl* (Metformin Hcl*), 500 MG ORAL TID, (Reported) Discontinued Reason: MD discontinued med Olanzapine* (Zyprexa*), 10 MG ORAL DAILY, (Reported) Discontinued Reason: Medication dose changed Potassium Bicarbonate/Cit Ac (Effer-K 20 Meq Tablet Eff), 40 MEQ PO, (Reported) Discontinued Reason: MD discontinued med Psyllium (Metamucil Powder), 1 PKT ORAL BID, (Reported) Discontinued Reason: MD discontinued med Patient History History Provided By: Patient Healthcare decision maker Nevaeh Madrigal Resuscitation status Full Code Advanced Directive on File Yes Past Medical/Surgical History Past Medical/Surgical History: (1) Schizoaffective disorder, bipolar type Review of Systems Constitutional: Reports: weakness Eye: Reports: no symptoms Respiratory: Reports: no symptoms, other - hx of COPD Cardiovascular: Reports: other - hx of HTN Gastrointestinal: Reports: no symptoms Genitourinary: Reports: see HPI Musculoskeletal: Reports: no symptoms Psychiatric: Reports: other - schizoaffective disorder bipolar type Endocrine: Reports: other - diabetes per hx Hematologic/Lymphatic: Reports: no symptoms Physical Exam General Appearance: no apparent distress, alert - responsive Lines, tubes and drains: peripheral HEENT: normocephalic, atraumatic, anicteric, mucous membranes moist Neck: normal alignment, supple, normal inspection Respiratory/Chest: chest wall non-tender, lungs clear, no accessory muscle use Cardiovascular/Chest: normal peripheral pulses, normal rate, no JVD Abdomen: normal bowel sounds, soft Extremities: non-tender, no calf tenderness, normal capillary refill Skin Exam: warm/dry Neurologic: alert, responsive, normal mood/affect Musculoskeletal: normal muscle bulk Last 24 Hour Vital Signs Date Time Temp Pulse Resp B/P (MAP) Pulse Ox O2 Delivery O2 Flow Rate FiO2 06/29/18 05:48 98.1 62 18 96/50 (65) 97 98.1 06/29/18 04:19 98.1 62 17 103/51 (68) 99 98.1 06/28/18 21:00 Room Air 06/28/18 20:00 97.7 67 17 98/66 (77) 99 97.7 06/28/18 18:11 Room Air 06/28/18 17:15 98.1 60 18 122/63 98 Room Air 98.1 06/28/18 16:00 60 18 122/63 98 Room Air 06/28/18 14:10 98.1 64 18 126/66 98 Room Air 98.1 06/28/18 14:03 98.0 64 18 126/66 98 Room Air 98.1 Intake and Output 06/28/18 06/29/18 19:00 07:00 Intake Total 120 ml Output Total 30 ml Balance 90 ml Intake Oral 120 ml Output Urine Total 30 ml # Voids 2 1 # Bowel Movements 3 1 Laboratory Tests Test 06/28/18 14:25 06/28/18 14:36 Urine Color Brown Urine Appearance Slightly cloudy Urine pH 5 (4.5-8.0) Urine Specific [place] 1.025 (1.005-1.035) Urine Protein 2+ (NEGATIVE) H Urine Glucose (UA) Negative (NEGATIVE) Urine Ketones 2+ (NEGATIVE) H Urine Blood Negative (NEGATIVE) Urine Nitrite Negative (NEGATIVE) Urine Bilirubin Negative (NEGATIVE) Urine Urobilinogen 1 MG/DL (0.0-1.0) H Urine Leukocyte Esterase 2+ (NEGATIVE) H Urine RBC 5-10 /HPF (0 - 2) H Urine WBC 10-15 /HPF (0 - 2) H Urine Squamous Epithelial Cells Many /LPF (NONE/OCC) H Urine Bacteria Many /HPF (NONE) H Urine Mucus Many /LPF (NONE/OCC) H Urine Opiates Screen Negative (NEGATIVE) Urine Barbiturates Screen Negative (NEGATIVE) Phencyclidine (PCP) Screen Negative (NEGATIVE) Urine Amphetamines Screen Negative (NEGATIVE) Urine Benzodiazepines Screen Negative (NEGATIVE) Urine Cocaine Screen Negative (NEGATIVE) Urine Marijuana (THC) Screen Negative (NEGATIVE) White Blood Count 10.8 K/UL (4.8-10.8) Red Blood Count 5.36 M/UL (4.20-5.40) Hemoglobin 15.3 G/DL (12.0-16.0) Hematocrit 48.3 % (37.0-47.0) H Mean Corpuscular Volume 90 FL (80-99) Mean Corpuscular Hemoglobin 28.5 PG (27.0-31.0) Mean Corpuscular Hemoglobin Concent 31.6 G/DL (32.0-36.0) L Red Cell Distribution Width 11.7 % (11.6-14.8) Platelet Count 267 K/UL (150-450) Mean Platelet Volume 6.9 FL (6.5-10.1) Neutrophils (%) (Auto) 59.0 % (45.0-75.0) Lymphocytes (%) (Auto) 28.8 % (20.0-45.0) Monocytes (%) (Auto) 9.2 % (1.0-10.0) Eosinophils (%) (Auto) 2.2 % (0.0-3.0) Basophils (%) (Auto) 0.9 % (0.0-2.0) Sodium Level 143 MMOL/L (136-145) Potassium Level 3.9 MMOL/L (3.5-5.1) Chloride Level 104 MMOL/L (98-107) Carbon Dioxide Level 31 MMOL/L (21-32) Anion Gap 8 mmol/L (5-15) Blood Urea Nitrogen 19 mg/dL (7-18) H Creatinine 0.7 MG/DL (0.55-1.30) Estimat Glomerular Filtration Rate > 60 mL/min (>60) Glucose Level 85 MG/DL (74-106) Calcium Level 9.8 MG/DL (8.5-10.1) Total Bilirubin 0.3 MG/DL (0.2-1.0) Aspartate Amino Transf (AST/SGOT) 23 U/L (15-37) Alanine Aminotransferase (ALT/SGPT) 20 U/L (12-78) Alkaline Phosphatase 91 U/L (46-116) Total Creatine Kinase 26 U/L (26-308) Troponin I 0.000 ng/mL (0.000-0.056) Total Protein 8.4 G/DL (6.4-8.2) H Albumin 3.9 G/DL (3.4-5.0) Globulin 4.5 g/dL Albumin/Globulin Ratio 0.9 (1.0-2.7) L Salicylates Level 1.1 ug/mL (2.8-20) L Acetaminophen Level < 2 MCG/ML (10-30) L Serum Alcohol < 3 mg/dL Height (Feet): 5 Height (Inches): 2.00 Weight (Pounds): 108 Medications Current Medications Medications (Trade) Dose Ordered Sig/Jarod Route PRN Reason Start Time Stop Time Status Last Admin Dose Admin Acetaminophen (Tylenol) 650 mg Q4H PRN ORAL fever (temp>100.5F) 06/28/18 17:15 07/28/18 17:14 Albuterol/ Ipratropium (Albuterol/ Ipratropium) 3 ml Q4H PRN HHN Shortness of Breath 06/28/18 17:15 07/03/18 17:14 Cefepime HCl 2 gm/ Dextrose 110 ml @ 220 mls/hr EVERY 12 HOURS IV 06/28/18 21:00 07/05/18 20:59 06/28/18 21:43 Docusate Sodium (Colace) 250 mg TWICE A DAY ORAL 06/28/18 18:00 07/28/18 17:59 Heparin Sodium (Porcine) (Heparin 5000 units/ml) 5,000 units EVERY 12 HOURS SUBQ 06/28/18 21:00 07/28/18 20:59 Lorazepam (Ativan 2mg/ml 1ml) 2 mg Q8H PRN IV For Anxiety 06/28/18 18:00 07/05/18 17:59 Magnesium Hydroxide (Mom) 30 ml DAILYPRN PRN ORAL Constipation 06/28/18 17:15 07/28/18 17:14 Morphine Sulfate (Morphine Sulfate) 2 mg Q4H PRN IVP Moderate Pain (Pain Scale 4-6) 06/28/18 17:15 07/05/18 17:14 Ondansetron HCl (Zofran) 4 mg Q6H PRN IVP Nausea & Vomiting 06/28/18 17:15 07/28/18 17:14 Phenazopyridine HCl (Pyridium) 100 mg DAILYPRN PRN ORAL dysuria 06/28/18 17:15 07/28/18 17:14 Polyethylene Glycol (Miralax) 17 gm DAILYPRN PRN ORAL Constipation 06/28/18 17:30 07/28/18 17:14 Temazepam (Restoril) 15 mg HSPRN PRN ORAL Insomnia 06/28/18 17:15 07/05/18 17:14 Vancomycin HCl (Vanco rx to dose) 1 ea DAILY PRN MISC PER RX PROTOCOL 06/28/18 17:30 07/28/18 17:29 Vancomycin HCl 1 gm/Dextrose 275 ml @ 183.3 mls/ hr Q24H IVPB 06/28/18 20:00 07/03/18 19:59 06/28/18 20:06 Assessment/Plan Status Narrative ASSESSMENT UTI dehydration acute encephalopathy ( due to UTI and dehydration) on chronic psychiatric disorder schizoaffective disorder bipolar type COPD history of hypertension PLAN CARE Med Surg floor IV hydration, push oral fluids monitor renal parameters ,electrolytes, avoid nephrotoxic empiric abx, fup with urine cx ID consult Pyridium for comfort psych eval for optimization of psychiatric medication O2 , HHN prn CXR no evidence of respiratory distress monitor BP, currently normotensive , no need for antihypertensive medication at this time DVT prophylaxis bowel regimen dietary eval supportive care case discussed and evaluated by supervising physician Pastora Crews NP Jun 29, 2018 08:28
[2018-06-29 09:07] LABS: APPEARANCE,URINE CLEAR; BILIRUBIN, URINE NEGATIVE (NEGATIVE); COLOR,URINE PALE YELLOW; GLUCOSE, URINE (UA) NEGATIVE (NEGATIVE); KETONES,URINE 1+ (NEGATIVE); LEUKOCYTE ESTERASE ,URINE 2+ (NEGATIVE); NITRITE,URINE NEGATIVE (NEGATIVE); PH,URINE 6.5 (4.5-8.0); PROTEIN,URINE NEGATIVE (NEGATIVE); UROBILINOGEN,URINE NORMAL MG/DL (0.0-1.0)
[2018-06-29] MEDS ORDERED: Potassium Chloride 10 MEQ in D5 1/2NS 1,000 ML IV SCH (09:30)
[2018-06-29 10:29] LABS: BASOPHILS % (AUTO) 0.9 % (0.0-2.0); HEMATOCRIT 43.1 % (37.0-47.0); HEMOGLOBIN 14.2 G/DL (12.0-16.0); LYMPHOCYTES % (AUTO) 26.5 % (20.0-45.0); MEAN CORPUSCULAR VOLUME 90 FL (80-99); MONOCYTES % (AUTO) 10.7 % (1.0-10.0); NEUTROPHILS % (AUTO) 57.8 % (45.0-75.0); PLATELET COUNT 227 K/UL (150-450); RED BLOOD COUNT 4.77 M/UL (4.20-5.40); RED CELL DISTRIBUTION WIDTH 11.7 % (11.6-14.8); WHITE BLOOD COUNT 8.5 K/UL (4.8-10.8)
[2018-06-29 10:39] LABS: ALANINE AMINOTRANSFERASE 16 U/L (12-78); ALBUMIN 2.9 G/DL (3.4-5.0); ALBUMIN/GLOBULIN RATIO 0.7 (1.0-2.7); ALKALINE PHOSPHATASE 70 U/L (46-116); ANION GAP 3 mmol/L (5-15); ASPARTATE AMINO TRANSFERASE 14 U/L (15-37); BILIRUBIN,TOTAL 0.3 MG/DL (0.2-1.0); BLOOD UREA NITROGEN 13 mg/dL (7-18); CALCIUM 9.2 MG/DL (8.5-10.1); CARBON DIOXIDE 32 MMOL/L (21-32); CHLORIDE 106 MMOL/L (98-107); CREATININE 0.9 MG/DL (0.55-1.30); POTASSIUM 3.8 MMOL/L (3.5-5.1); SODIUM 141 MMOL/L (136-145)
[2018-06-29 12:00] VITALS: BP 105/75
[2018-06-29] MEDS: D5 1/2NS w/KCL 10meq 1,000 ML IV SCH (12:13)
--- NOTE | 2018-06-29 13:48 | Cardiology Report ---
APPROVED REPORT EKG Measurement Heart [id number] Normal sinus rhythm Low voltage QRS Borderline ECG
[2018-06-29 16:00] VITALS: BP 106/67
[2018-06-29 20:00] VITALS: BP 105/70
--- NOTE | 2018-06-29 21:22 | Consultation ---
History of Present Illness General Chief Complaint: General Complaint Present Illness HPI 57 years old female with past medical history of schizoaffective disorder bipolar type COPD, hypertension, hyponatremia and diabetes mellitus. the pt has delusional thoughts. The pt has poor insight. the pt is refusing all her psychotropics. the pt believes "everyone is following me." Allergies: Coded Allergies: No Known Allergies (Unverified , 02/13/18) Medication History Scheduled Cranberry Fruit Concentrate (Cranberry), 900 MG PO DAILY, (Reported) Docusate Sodium* (Docusate Sodium*), 250 MG ORAL TWICE A DAY, (Reported) Haloperidol Lactate (Haloperidol Lactate), 15 MG ORAL BID, (Reported) Mag Hydrox/Al Hydrox/Simeth (Maria R-Lanta Liquid), 30 ML PO Q4HR, (Reported) Magnesium Hydroxide* (Milk Of Magnesia*), 30 ML ORAL DAILY, (Reported) Mirtazapine* (Mirtazapine*), 30 MG ORAL BEDTIME, (Reported) Multivitamins* (Multivitamins*), 1 TAB ORAL DAILY, (Reported) Na Phos,M-B/Na Phos,Di-Ba* (Fleet Enema*), 1 UNIT RECTAL PRN, (Reported) Valproate Sodium (Valproic Acid), 250 MG PO BID, (Reported) Discontinued Medications Amino Acids/Protein Hydrolys (Pro-Stat Liquid), 30 ML ORAL DAILY, (Reported) Discontinued Reason: MD discontinued med Glucagon,Human Recombinant (Glucagen), 1 MG IJ, (Reported) Discontinued Reason: MD discontinued med Levalbuterol Hcl (Xopenex*), 0.63 MG HHN Q8HR, (Reported) Discontinued Reason: MD discontinued med Lorazepam* (Lorazepam*), 2 MG IV Q8HR, (Reported) Discontinued Reason: MD discontinued med Metformin Hcl* (Metformin Hcl*), 500 MG ORAL TID, (Reported) Discontinued Reason: MD discontinued med Olanzapine* (Zyprexa*), 10 MG ORAL DAILY, (Reported) Discontinued Reason: Medication dose changed Potassium Bicarbonate/Cit Ac (Effer-K 20 Meq Tablet Eff), 40 MEQ PO, (Reported) Discontinued Reason: MD discontinued med Psyllium (Metamucil Powder), 1 PKT ORAL BID, (Reported) Discontinued Reason: MD discontinued med Patient History History Provided By: Patient, Medical Record, PMD Healthcare decision maker Nevaeh Madrigal Resuscitation status Full Code Advanced Directive on File Yes Past Medical/Surgical History Past Medical/Surgical History: (1) Schizoaffective disorder, bipolar type (2) Dehydration (3) Failure to thrive (4) UTI (urinary tract infection) (5) Hypokalemia (6) Severe malnutrition (7) Metabolic encephalopathy Review of Systems Psychiatric: Reports: prior hx, anxiety, depressed feelings, hallucinations Physical Exam General Appearance: no apparent distress, alert Neurologic: oriented x 3, depressed affect Last 24 Hour Vital Signs Date Time Temp Pulse Resp B/P (MAP) Pulse Ox O2 Delivery O2 Flow Rate FiO2 06/29/18 16:00 98.2 73 20 106/67 (80) 97 98.2 06/29/18 12:00 97.8 73 18 105/75 (85) 96 97.8 06/29/18 10:03 65 20 Room Air 06/29/18 09:00 Room Air 06/29/18 08:00 97.7 70 18 103/60 (74) 98 97.7 06/29/18 05:48 98.1 62 18 96/50 (65) 97 98.1 06/29/18 04:19 98.1 62 17 103/51 (68) 99 98.1 Intake and Output 06/28/18 06/29/18 19:00 07:00 Intake Total 120 ml Output Total 30 ml Balance 90 ml Intake Oral 120 ml Output Urine Total 30 ml # Voids 2 1 # Bowel Movements 3 1 Laboratory Tests Test 06/29/18 07:30 06/29/18 10:00 Urine Color Pale yellow Urine Appearance Clear Urine pH 6.5 (4.5-8.0) Urine Specific [place] 1.010 (1.005-1.035) Urine Protein Negative (NEGATIVE) Urine Glucose (UA) Negative (NEGATIVE) Urine Ketones 1+ (NEGATIVE) H Urine Blood Negative (NEGATIVE) Urine Nitrite Negative (NEGATIVE) Urine Bilirubin Negative (NEGATIVE) Urine Urobilinogen Normal MG/DL (0.0-1.0) Urine Leukocyte Esterase 2+ (NEGATIVE) H Urine RBC 0-2 /HPF (0 - 2) Urine WBC 5-10 /HPF (0 - 2) H Urine Squamous Epithelial Cells Few /LPF (NONE/OCC) Urine Bacteria Few /HPF (NONE) White Blood Count 8.5 K/UL (4.8-10.8) Red Blood Count 4.77 M/UL (4.20-5.40) Hemoglobin 14.2 G/DL (12.0-16.0) Hematocrit 43.1 % (37.0-47.0) Mean Corpuscular Volume 90 FL (80-99) Mean Corpuscular Hemoglobin 29.8 PG (27.0-31.0) Mean Corpuscular Hemoglobin Concent 33.0 G/DL (32.0-36.0) Red Cell Distribution Width 11.7 % (11.6-14.8) Platelet Count 227 K/UL (150-450) Mean Platelet Volume 7.3 FL (6.5-10.1) Neutrophils (%) (Auto) 57.8 % (45.0-75.0) Lymphocytes (%) (Auto) 26.5 % (20.0-45.0) Monocytes (%) (Auto) 10.7 % (1.0-10.0) H Eosinophils (%) (Auto) 4.0 % (0.0-3.0) H Basophils (%) (Auto) 0.9 % (0.0-2.0) Sodium Level 141 MMOL/L (136-145) Potassium Level 3.8 MMOL/L (3.5-5.1) Chloride Level 106 MMOL/L (98-107) Carbon Dioxide Level 32 MMOL/L (21-32) Anion Gap 3 mmol/L (5-15) L Blood Urea Nitrogen 13 mg/dL (7-18) Creatinine 0.9 MG/DL (0.55-1.30) Estimat Glomerular Filtration Rate > 60 mL/min (>60) Glucose Level 157 MG/DL (74-106) H Hemoglobin A1c 6.1 % (4.3-6.0) H Calcium Level 9.2 MG/DL (8.5-10.1) Total Bilirubin 0.3 MG/DL (0.2-1.0) Aspartate Amino Transf (AST/SGOT) 14 U/L (15-37) L Alanine Aminotransferase (ALT/SGPT) 16 U/L (12-78) Alkaline Phosphatase 70 U/L (46-116) Total Protein 6.8 G/DL (6.4-8.2) Albumin 2.9 G/DL (3.4-5.0) L Globulin 3.9 g/dL Albumin/Globulin Ratio 0.7 (1.0-2.7) L Height (Feet): 5 Height (Inches): 2.00 Weight (Pounds): 108 Medications Current Medications Medications (Trade) Dose Ordered Sig/Jarod Route PRN Reason Start Time Stop Time Status Last Admin Dose Admin Acetaminophen (Tylenol) 650 mg Q4H PRN ORAL fever (temp>100.5F) 06/28/18 17:15 07/28/18 17:14 Albuterol/ Ipratropium (Albuterol/ Ipratropium) 3 ml Q4H PRN HHN Shortness of Breath 06/28/18 17:15 07/03/18 17:14 Dextrose/ Electrolytes 1,000 ml @ 50 mls/hr Q20H IV 06/29/18 12:13 07/29/18 09:29 06/29/18 12:13 Docusate Sodium (Colace) 250 mg TWICE A DAY ORAL 06/28/18 18:00 07/28/18 17:59 Heparin Sodium (Porcine) (Heparin 5000 units/ml) 5,000 units EVERY 12 HOURS SUBQ 06/28/18 21:00 07/28/18 20:59 06/29/18 21:09 Lorazepam (Ativan 2mg/ml 1ml) 2 mg Q8H PRN IV For Anxiety 06/28/18 18:00 07/05/18 17:59 Magnesium Hydroxide (Mom) 30 ml DAILYPRN PRN ORAL Constipation 06/28/18 17:15 07/28/18 17:14 Morphine Sulfate (Morphine Sulfate) 2 mg Q4H PRN IVP Moderate Pain (Pain Scale 4-6) 06/28/18 17:15 07/05/18 17:14 Ondansetron HCl (Zofran) 4 mg Q6H PRN IVP Nausea & Vomiting 06/28/18 17:15 07/28/18 17:14 Phenazopyridine HCl (Pyridium) 100 mg DAILYPRN PRN ORAL dysuria 06/28/18 17:15 07/28/18 17:14 Polyethylene Glycol (Miralax) 17 gm DAILYPRN PRN ORAL Constipation 06/28/18 17:30 07/28/18 17:14 Temazepam (Restoril) 15 mg HSPRN PRN ORAL Insomnia 06/28/18 17:15 07/05/18 17:14 Assessment/Plan Status: stable, progressing Assessment/Plan Schizoaffective d/o bipolar type. The pt lacks capacity to make decisions -Haldol dec 100mg x 1 time -cont Zyprexa -cont Farhan Mcduffie MD Jun 29, 2018 21:22
[2018-06-29] MEDS: OLANZapine 10mg tab ORAL SCH (22:13)
[2018-06-29] MEDS ORDERED: Haloperidol Decanoate 50mg Inj IM ONE (23:00)
[2018-06-30] VITALS: BP 124/77
--- NOTE | 2018-06-30 08:07 | Consultation ---
History of Present Illness General Date patient seen: Jun 30, 2018 Chief Complaint: General Complaint Reason for Consultation: UTI Present Illness HPI Ms Scott is a 57 yo female with PMHx of DM, COPD and Schizoaffective/Bipolar disorder who was sent from her nursing for failure to thrive. She had apparently been refusing to eat and aggressive to staph. In the ED she reported being hungry and dizzy. She denied Pain, N/V/D, SOB, cough. She has been afebrile and has had no leukocytosis. Her UA show mildly elevated WBCs Today she reports dysuria improved. No hematuria ID was consulted for UTI PMHx/PSHx DM COPD Schizoaffective/Bipolar disorder SocHx No E/T/D FamHx Not contributory Allergies: Coded Allergies: No Known Allergies (Unverified , 02/13/18) Medication History Scheduled Cranberry Fruit Concentrate (Cranberry), 900 MG PO DAILY, (Reported) Docusate Sodium* (Docusate Sodium*), 250 MG ORAL TWICE A DAY, (Reported) Haloperidol Lactate (Haloperidol Lactate), 15 MG ORAL BID, (Reported) Mag Hydrox/Al Hydrox/Simeth (Maria R-Lanta Liquid), 30 ML PO Q4HR, (Reported) Magnesium Hydroxide* (Milk Of Magnesia*), 30 ML ORAL DAILY, (Reported) Mirtazapine* (Mirtazapine*), 30 MG ORAL BEDTIME, (Reported) Multivitamins* (Multivitamins*), 1 TAB ORAL DAILY, (Reported) Na Phos,M-B/Na Phos,Di-Ba* (Fleet Enema*), 1 UNIT RECTAL PRN, (Reported) Valproate Sodium (Valproic Acid), 250 MG PO BID, (Reported) Discontinued Medications Amino Acids/Protein Hydrolys (Pro-Stat Liquid), 30 ML ORAL DAILY, (Reported) Discontinued Reason: MD discontinued med Glucagon,Human Recombinant (Glucagen), 1 MG IJ, (Reported) Discontinued Reason: MD discontinued med Levalbuterol Hcl (Xopenex*), 0.63 MG HHN Q8HR, (Reported) Discontinued Reason: MD discontinued med Lorazepam* (Lorazepam*), 2 MG IV Q8HR, (Reported) Discontinued Reason: MD discontinued med Metformin Hcl* (Metformin Hcl*), 500 MG ORAL TID, (Reported) Discontinued Reason: MD discontinued med Olanzapine* (Zyprexa*), 10 MG ORAL DAILY, (Reported) Discontinued Reason: Medication dose changed Potassium Bicarbonate/Cit Ac (Effer-K 20 Meq Tablet Eff), 40 MEQ PO, (Reported) Discontinued Reason: MD discontinued med Psyllium (Metamucil Powder), 1 PKT ORAL BID, (Reported) Discontinued Reason: MD discontinued med Patient History Healthcare decision maker Nevaeh Madrigal Resuscitation status Full Code Advanced Directive on File Yes Review of Systems All Other Systems: negative except mentioned in HPI Physical Exam Last 24 Hour Vital Signs Date Time Temp Pulse Resp B/P (MAP) Pulse Ox O2 Delivery O2 Flow Rate FiO2 06/30/18 00:00 74 19 124/77 (93) 95 06/29/18 21:00 Room Air 06/29/18 20:00 97.0 68 19 105/70 (82) 99 97.0 06/29/18 16:00 98.2 73 20 106/67 (80) 97 98.2 06/29/18 12:00 97.8 73 18 105/75 (85) 96 97.8 06/29/18 10:03 65 20 Room Air 06/29/18 09:00 Room Air Intake and Output 06/29/18 06/30/18 19:00 07:00 Intake Total 850 ml 700 ml Balance 850 ml 700 ml Intake Oral 500 ml 100 ml IV Total 350 ml 600 ml # Voids 4 2 # Bowel Movements 1 1 Laboratory Tests Test 06/29/18 10:00 White Blood Count 8.5 K/UL (4.8-10.8) Red Blood Count 4.77 M/UL (4.20-5.40) Hemoglobin 14.2 G/DL (12.0-16.0) Hematocrit 43.1 % (37.0-47.0) Mean Corpuscular Volume 90 FL (80-99) Mean Corpuscular Hemoglobin 29.8 PG (27.0-31.0) Mean Corpuscular Hemoglobin Concent 33.0 G/DL (32.0-36.0) Red Cell Distribution Width 11.7 % (11.6-14.8) Platelet Count 227 K/UL (150-450) Mean Platelet Volume 7.3 FL (6.5-10.1) Neutrophils (%) (Auto) 57.8 % (45.0-75.0) Lymphocytes (%) (Auto) 26.5 % (20.0-45.0) Monocytes (%) (Auto) 10.7 % (1.0-10.0) H Eosinophils (%) (Auto) 4.0 % (0.0-3.0) H Basophils (%) (Auto) 0.9 % (0.0-2.0) Sodium Level 141 MMOL/L (136-145) Potassium Level 3.8 MMOL/L (3.5-5.1) Chloride Level 106 MMOL/L (98-107) Carbon Dioxide Level 32 MMOL/L (21-32) Anion Gap 3 mmol/L (5-15) L Blood Urea Nitrogen 13 mg/dL (7-18) Creatinine 0.9 MG/DL (0.55-1.30) Estimat Glomerular Filtration Rate > 60 mL/min (>60) Glucose Level 157 MG/DL (74-106) H Hemoglobin A1c 6.1 % (4.3-6.0) H Calcium Level 9.2 MG/DL (8.5-10.1) Total Bilirubin 0.3 MG/DL (0.2-1.0) Aspartate Amino Transf (AST/SGOT) 14 U/L (15-37) L Alanine Aminotransferase (ALT/SGPT) 16 U/L (12-78) Alkaline Phosphatase 70 U/L (46-116) Total Protein 6.8 G/DL (6.4-8.2) Albumin 2.9 G/DL (3.4-5.0) L Globulin 3.9 g/dL Albumin/Globulin Ratio 0.7 (1.0-2.7) L Height (Feet): 5 Height (Inches): 2.00 Weight (Pounds): 108 Medications Current Medications Medications (Trade) Dose Ordered Sig/Jarod Route PRN Reason Start Time Stop Time Status Last Admin Dose Admin Acetaminophen (Tylenol) 650 mg Q4H PRN ORAL fever (temp>100.5F) 06/28/18 17:15 07/28/18 17:14 Albuterol/ Ipratropium (Albuterol/ Ipratropium) 3 ml Q4H PRN HHN Shortness of Breath 06/28/18 17:15 07/03/18 17:14 Dextrose/ Electrolytes 1,000 ml @ 50 mls/hr Q20H IV 06/29/18 12:13 07/29/18 09:29 06/29/18 12:13 Docusate Sodium (Colace) 250 mg TWICE A DAY ORAL 06/28/18 18:00 07/28/18 17:59 Heparin Sodium (Porcine) (Heparin 5000 units/ml) 5,000 units EVERY 12 HOURS SUBQ 06/28/18 21:00 07/28/18 20:59 06/29/18 21:09 Lorazepam (Ativan 2mg/ml 1ml) 2 mg Q8H PRN IV For Anxiety 06/28/18 18:00 07/05/18 17:59 Magnesium Hydroxide (Mom) 30 ml DAILYPRN PRN ORAL Constipation 06/28/18 17:15 07/28/18 17:14 Mirtazapine (Remeron) 15 mg BEDTIME ORAL 06/29/18 21:00 07/29/18 20:59 Morphine Sulfate (Morphine Sulfate) 2 mg Q4H PRN IVP Moderate Pain (Pain Scale 4-6) 06/28/18 17:15 07/05/18 17:14 Olanzapine (ZyPREXA) 10 mg BEDTIME ORAL 06/29/18 21:00 07/29/18 20:59 Ondansetron HCl (Zofran) 4 mg Q6H PRN IVP Nausea & Vomiting 06/28/18 17:15 07/28/18 17:14 Phenazopyridine HCl (Pyridium) 100 mg DAILYPRN PRN ORAL dysuria 06/28/18 17:15 07/28/18 17:14 Polyethylene Glycol (Miralax) 17 gm DAILYPRN PRN ORAL Constipation 06/28/18 17:30 07/28/18 17:14 Temazepam (Restoril) 15 mg HSPRN PRN ORAL Insomnia 06/28/18 17:15 07/05/18 17:14 Objective Narrative Gen: NAD, well appearing, alert HEENT: NCAT, MMM, EOMI, PERRL, No Oral lesion, no scleral icterus NECK: full range of motion, supple, no meningismus, No LAD, No JVD LUNGS: CTAB, No W/C, No Accessory muscle use CARDS: RRR, S1, S2, No M/R/G ABD: Soft, NT, ND, No R/G, + BS, No HSM, No Masses : Deferred Ext: C/C/E, Pulses 2+ B/L (DP, Rad) NEURO: A/O x 4, Strength and Sensation Grossly intact PSYCH: mood/affect normal SKIN: warm/dry, No rashes, Assessment/Plan Assessment/Plan 57 yo female with PMHx of DM, COPD and Schizoaffective/Bipolar disorder who was sent from her nursing for failure to thrive. Dysuria UA Mild leukocytosis Afebrile, No leukocytosis Urine Cx NGTD DM COPD Schizoaffective/Bipolar disorder PLAN: 06/29/18 SP Cefepime #1 and Vancomycin #1 Start ceftriaxone #1/2 to finish a short course of abx Monitor CBC and Temps Thank you for this consult. We will continue to follow the patient during this hospitalization. Jeyson Charlton MD Jun 30, 2018 08:07
[2018-06-30] MEDS: D5 1/2NS w/KCL 10meq 1,000 ML IV SCH (08:13)
[2018-06-30] MEDS: Docusate 250mg cap ORAL SCH (08:42)
[2018-06-30] MEDS: Heparin 5000 units/ml inj SUBQ SCH ×2 (08:43→20:37)
[2018-06-30] MEDS: cefTRIAXone 1 GM in D5W 55 ML IVPB SCH (10:37)
[2018-06-30 11:00] LABS: BASOPHILS % (AUTO) 1.2 % (0.0-2.0); EOSINOPHILS % (AUTO) 4.1 % (0.0-3.0); HEMATOCRIT 44.6 % (37.0-47.0); HEMOGLOBIN 14.6 G/DL (12.0-16.0); MEAN CORPUSCULAR VOLUME 91 FL (80-99); MONOCYTES % (AUTO) 10.2 % (1.0-10.0); NEUTROPHILS % (AUTO) 48.5 % (45.0-75.0); PLATELET COUNT 178 K/UL (150-450); RED BLOOD COUNT 4.88 M/UL (4.20-5.40); RED CELL DISTRIBUTION WIDTH 11.9 % (11.6-14.8); WHITE BLOOD COUNT 9.1 K/UL (4.8-10.8)
--- NOTE | 2018-06-30 11:03 | GI Initial Consult Note ---
History of Present Illness General Date patient seen: Jun 30, 2018 Time patient seen: 12:30 Reason for Hospitalization: General Complaint Referring physician: SHUBHAM Reason for Consultation: CONSTIPATION Present Illness HPI Patient was sent in for psychiatric evaluation. The patient was argumentative with staff and aggressive. She is supposed be taking Haldol. She denies suicidal or homicidal ideation at this time. She has refused to eat for at least a day. She won't say why. Allegedly she has been taking her medications. The patient states she's hungry and feels dizzy. She denies pain. No nausea vomiting diarrhea dysuria rashes change in vision shortness of breath cough joint pain. Patient is diabetic. H/O bipolar disorder, schizophrenia, depression. H/O hyponatremia GI consulted for FTT/constipation. Pt seen, awake A&O NAD with no active s/sx of N/V/D. Patient has been refusing vital signs and stool softeners. Denies any abdominal pain, N/V/D. States she's felt a little constipated, but is afraid to take medication that would cause her to have diarrhea. Labs reviewed , no anemia, no LFT abnormality. Per patient, she has a DPOA. No history of endoscopy / colonoscopy. Home Meds Reported Medications Valproate Sodium (VALPROIC ACID) 250 Mg/5 Ml Solution, 250 MG PO BID 06/28/18 Multivitamins* (MULTIVITAMINS*) 1 Each Tablet, 1 TAB ORAL DAILY, TAB 0 Refills 06/28/18 Mirtazapine* (MIRTAZAPINE*) 7.5 Mg Tablet, 30 MG ORAL BEDTIME, TAB 06/28/18 Magnesium Hydroxide* (MILK OF MAGNESIA*) 400 Mg/5 Ml Oral.susp, 30 ML ORAL DAILY , ML 06/28/18 Mag Hydrox/Al Hydrox/Simeth (STAN-LANTA LIQUID) 355 Ml Oral.susp, 30 ML PO Q4HR , ML 06/28/18 Na Phos,M-B/Na Phos,Di-Ba* (FLEET ENEMA*) 133 Ml Enema, 1 UNIT RECTAL PRN, ML 0 Refills 06/28/18 Cranberry Fruit Concentrate (CRANBERRY) 450 Mg Capsule, 900 MG PO DAILY, CAP 06/28/18 Haloperidol Lactate (HALOPERIDOL LACTATE) 5 Mg/1 Ml Vial, 15 MG ORAL BID, VIAL 02/13/18 Docusate Sodium* (DOCUSATE SODIUM*) 100 Mg Capsule, 250 MG ORAL TWICE A DAY, CAP 02/13/18 Discontinued Reported Medications Psyllium (Metamucil Powder) 575 Gm Powder, 1 PKT ORAL BID, PKT 06/28/18 Amino Acids/Protein Hydrolys (PRO-STAT LIQUID) 30 Ml Liquid.pkt, 30 ML ORAL DAILY, ML 06/28/18 Potassium Bicarbonate/Cit Ac (EFFER-K 20 MEQ TABLET EFF) 20 Meq Tablet.eff, 40 MEQ PO, TAB 02/13/18 Olanzapine* (ZYPREXA*) 10 Mg Tablet, 10 MG ORAL DAILY, #30 TAB 0 Refills 02/13/18 Metformin Hcl* (METFORMIN HCL*) 500 Mg Tablet, 500 MG ORAL TID, TAB 02/13/18 Lorazepam* (LORAZEPAM*) 2 Mg/1 Ml Vial, 2 MG IV Q8HR, VIAL 02/13/18 Levalbuterol Hcl (XOPENEX*) 0.63 Mg/3 Ml Vial.neb, 0.63 MG HHN Q8HR for 30 Days , MG 0 Refills 02/13/18 Glucagon,Human Recombinant (Glucagen) 1 Mg Vial, 1 MG IJ, KIT 02/13/18 Med list reviewed/reconciled: Yes Allergies: Coded Allergies: No Known Allergies (Unverified , 02/13/18) Patient History History Provided By: Patient, Medical Record PMH Narrative Past Medical History: see triage record, old chart reviewed Social History: Denies: smoking, alcohol use, drug use Social History Narrative board and care facility Last Menstrual Period: NA Now: No Reviewed Nursing Documentation: PMH: Agreed; PSxH: Agreed Nursing Documentation-PMH Past Medical History: No History, Except For Hx Cardiac Problems: No - miscle weakness, lack of coorderination Hx Hypertension: Yes Hx Pacemaker: No - hypernatremia Hx COPD: Yes Hx Diabetes: Yes Review of Systems All Other Systems: negative except mentioned in HPI Physical Exam Vital Signs Date Time Temp Pulse Resp B/P (MAP) Pulse Ox O2 Delivery O2 Flow Rate FiO2 06/28/18 14:03 98.0 64 18 126/66 98 Room Air 98.1 Sp02 EP Interpretation: reviewed, normal Labs Laboratory Tests Test 06/30/18 10:15 White Blood Count Pending Red Blood Count Pending Hemoglobin Pending Hematocrit Pending Mean Corpuscular Volume Pending Mean Corpuscular Hemoglobin Pending Mean Corpuscular Hemoglobin Concent Pending Red Cell Distribution Width Pending Platelet Count Pending Mean Platelet Volume Pending Neutrophils (%) (Auto) Pending Lymphocytes (%) (Auto) Pending Monocytes (%) (Auto) Pending Eosinophils (%) (Auto) Pending Basophils (%) (Auto) Pending Sodium Level Pending Potassium Level Pending Chloride Level Pending Carbon Dioxide Level Pending Blood Urea Nitrogen Pending Creatinine Pending Estimat Glomerular Filtration Rate Pending Glucose Level Pending Calcium Level Pending General Appearance: well appearing, no apparent distress, alert Head: normocephalic EENT: PERRL/EOMI, normal ENT inspection Neck: supple Respiratory: normal breath sounds, no respiratory distress Cardiovascular: normal rate Gastrointestinal: normal inspection, non tender, soft, normal bowel sounds, non -distended Rectal: deferred Genitourinary: no CVA tenderness Musculoskeletal: normal inspection, back normal Neurologic: normal inspection, alert, oriented x3, responsive Psychiatric: normal inspection, judgement/insight normal, memory normal Skin: normal inspection, normal color, no rash, warm/dry, palpation normal, well hydrated Lymphatic: normal inspection, no adenopathy Current Medications Current Medications Medications (Trade) Dose Ordered Sig/Jarod Route PRN Reason Start Time Stop Time Status Last Admin Dose Admin Acetaminophen (Tylenol) 650 mg Q4H PRN ORAL fever (temp>100.5F) 06/28/18 17:15 07/28/18 17:14 Albuterol/ Ipratropium (Albuterol/ Ipratropium) 3 ml Q4H PRN HHN Shortness of Breath 06/28/18 17:15 07/03/18 17:14 Ceftriaxone Sodium 1 gm/ Dextrose 55 ml @ 110 mls/hr DAILY IVPB 06/30/18 11:00 07/07/18 10:59 06/30/18 10:37 Dextrose/ Electrolytes 1,000 ml @ 50 mls/hr Q20H IV 06/29/18 12:13 07/29/18 09:29 06/29/18 12:13 Docusate Sodium (Colace) 250 mg TWICE A DAY ORAL 06/28/18 18:00 07/28/18 17:59 Heparin Sodium (Porcine) (Heparin 5000 units/ml) 5,000 units EVERY 12 HOURS SUBQ 06/28/18 21:00 07/28/18 20:59 06/29/18 21:09 Lorazepam (Ativan 2mg/ml 1ml) 2 mg Q8H PRN IV For Anxiety 06/28/18 18:00 07/05/18 17:59 Magnesium Hydroxide (Mom) 30 ml DAILYPRN PRN ORAL Constipation 06/28/18 17:15 07/28/18 17:14 Mirtazapine (Remeron) 15 mg BEDTIME ORAL 06/29/18 21:00 07/29/18 20:59 Morphine Sulfate (Morphine Sulfate) 2 mg Q4H PRN IVP Moderate Pain (Pain Scale 4-6) 06/28/18 17:15 07/05/18 17:14 Olanzapine (ZyPREXA) 10 mg BEDTIME ORAL 06/29/18 21:00 07/29/18 20:59 Ondansetron HCl (Zofran) 4 mg Q6H PRN IVP Nausea & Vomiting 06/28/18 17:15 07/28/18 17:14 Phenazopyridine HCl (Pyridium) 100 mg DAILYPRN PRN ORAL dysuria 06/28/18 17:15 07/28/18 17:14 Polyethylene Glycol (Miralax) 17 gm DAILYPRN PRN ORAL Constipation 06/28/18 17:30 07/28/18 17:14 Temazepam (Restoril) 15 mg HSPRN PRN ORAL Insomnia 06/28/18 17:15 07/05/18 17:14 GI: Plan Problems: (1) UTI (urinary tract infection) (2) Failure to thrive (3) Dehydration (4) Schizoaffective disorder, bipolar type (5) Metabolic encephalopathy (6) Hypokalemia (7) Severe malnutrition Plan patient refusing GI procedures refusing vital signs, agreed to daily refusing bowel regime, agreed to daily colace symptomatic treatment / supportive care adv diet, push PO zofran prn calorie count IV/PO hydration bowel regime pain mgmt fu labs outpatient GI procedures The patient was seen and examined at bedside and all new and available data was reviewed in the patients chart. I agree with the above findings, impression and plan. (Patient seen earlier today. Signature stamp does not reflect patient encounter time.). - MD Karlene UlrichCo[facility] Jun 30, 2018 11:03
[2018-06-30 11:18] LABS: ANION GAP 7 mmol/L (5-15); BLOOD UREA NITROGEN 10 mg/dL (7-18); CALCIUM 9.8 MG/DL (8.5-10.1); CARBON DIOXIDE 31 MMOL/L (21-32); CHLORIDE 105 MMOL/L (98-107); CREATININE 0.8 MG/DL (0.55-1.30); POTASSIUM 3.7 MMOL/L (3.5-5.1); SODIUM 143 MMOL/L (136-145)
--- NOTE | 2018-06-30 11:35 | General Progress Note ---
Assessment/Plan Status: stable, progressing Assessment/Plan Schizophrenia The pt lacks capacity to make decisions -Haldol dec 100mg x 1 time -cont Zyprexa -cont Remeron Subjective Date patient seen: Jun 30, 2018 Neurologic/Psychiatric: Reports: anxiety, depressed, emotional problems Allergies: Coded Allergies: No Known Allergies (Unverified , 02/13/18) Objective Last 24 Hour Vital Signs Date Time Temp Pulse Resp B/P (MAP) Pulse Ox O2 Delivery O2 Flow Rate FiO2 06/30/18 09:27 76 18 Room Air 06/30/18 08:03 Room Air 06/30/18 00:00 74 19 124/77 (93) 95 06/29/18 21:00 Room Air 06/29/18 20:00 97.0 68 19 105/70 (82) 99 97.0 06/29/18 16:00 98.2 73 20 106/67 (80) 97 98.2 06/29/18 12:00 97.8 73 18 105/75 (85) 96 97.8 Intake and Output 06/29/18 06/30/18 19:00 07:00 Intake Total 850 ml 700 ml Balance 850 ml 700 ml Intake Oral 500 ml 100 ml IV Total 350 ml 600 ml # Voids 4 2 # Bowel Movements 1 1 Laboratory Tests 06/30/18 10:15: White Blood Count 9.1, Red Blood Count 4.88, Hemoglobin 14.6, Hematocrit 44.6, Mean Corpuscular Volume 91, Mean Corpuscular Hemoglobin 29.9, Mean Corpuscular Hemoglobin Concent 32.7, Red Cell Distribution Width 11.9, Platelet Count 178, Mean Platelet Volume 9.0, Neutrophils (%) (Auto) 48.5, Lymphocytes (%) (Auto) 36.0, Monocytes (%) (Auto) 10.2H, Eosinophils (%) (Auto) 4.1H, Basophils (%) ( Auto) 1.2, Sodium Level 143, Potassium Level 3.7, Chloride Level 105, Carbon Dioxide Level 31, Anion Gap 7, Blood Urea Nitrogen 10, Creatinine 0.8, Estimat Glomerular Filtration Rate > 60, Glucose Level 71L, Calcium Level 9.8 Height (Feet): 5 Height (Inches): 2.00 Weight (Pounds): 108 General Appearance: no apparent distress, alert Neurologic: oriented x 3, responsive, depressed affect Farhadi,Pantea MD Jun 30, 2018 11:35
--- NOTE | 2018-06-30 11:44 | Pulmonology Progress Note ---
Assessment/Plan Problems: (1) Metabolic encephalopathy (2) Failure to thrive (3) Schizoaffective disorder, bipolar type (4) Dehydration (5) Hypokalemia Assessment/Plan IV fluids psych meds psych f/u check electrolytes dvt prophylaxi pt lacks capacity as per psychiatrist Subjective ROS Limited/Unobtainable: No Interval Events: awake, still refusing psych meds Allergies: Coded Allergies: No Known Allergies (Unverified , 02/13/18) Objective Last 24 Hour Vital Signs Date Time Temp Pulse Resp B/P (MAP) Pulse Ox O2 Delivery O2 Flow Rate FiO2 06/30/18 09:27 76 18 Room Air 06/30/18 08:03 Room Air 06/30/18 00:00 74 19 124/77 (93) 95 06/29/18 21:00 Room Air 06/29/18 20:00 97.0 68 19 105/70 (82) 99 97.0 06/29/18 16:00 98.2 73 20 106/67 (80) 97 98.2 06/29/18 12:00 97.8 73 18 105/75 (85) 96 97.8 Intake and Output 06/29/18 06/30/18 19:00 07:00 Intake Total 850 ml 700 ml Balance 850 ml 700 ml Intake Oral 500 ml 100 ml IV Total 350 ml 600 ml # Voids 4 2 # Bowel Movements 1 1 General Appearance: cachetic HEENT: normocephalic, atraumatic Respiratory/Chest: chest wall non-tender, lungs clear Breasts: no masses Cardiovascular: normal peripheral pulses, normal rate Abdomen: normal bowel sounds, soft, non tender Extremities: no cyanosis 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 Complete 06/29/18 07:30 Indwelling Cath Urine Culture - Preliminary NO GROWTH Resulted 06/28/18 14:25 Urine,Clean Catch Urine Culture - Preliminary Mixed Gram Positive Organism Resulted 06/28/18 15:00 Rectum VRE Culture - Final NO VANCOMYCIN RESISTANT ENTEROCOCCUS ... Complete 06/28/18 15:00 Rectum - Final NO CARBAPENEM-RESISTANT ENTEROBACTERI... Complete Laboratory Tests 06/30/18 10:15: White Blood Count 9.1, Red Blood Count 4.88, Hemoglobin 14.6, Hematocrit 44.6, Mean Corpuscular Volume 91, Mean Corpuscular Hemoglobin 29.9, Mean Corpuscular Hemoglobin Concent 32.7, Red Cell Distribution Width 11.9, Platelet Count 178, Mean Platelet Volume 9.0, Neutrophils (%) (Auto) 48.5, Lymphocytes (%) (Auto) 36.0, Monocytes (%) (Auto) 10.2H, Eosinophils (%) (Auto) 4.1H, Basophils (%) ( Auto) 1.2, Sodium Level 143, Potassium Level 3.7, Chloride Level 105, Carbon Dioxide Level 31, Anion Gap 7, Blood Urea Nitrogen 10, Creatinine 0.8, Estimat Glomerular Filtration Rate > 60, Glucose Level 71L, Calcium Level 9.8 Current Medications Medications (Trade) Dose Ordered Sig/Jarod Route PRN Reason Start Time Stop Time Status Last Admin Dose Admin Acetaminophen (Tylenol) 650 mg Q4H PRN ORAL fever (temp>100.5F) 06/28/18 17:15 07/28/18 17:14 Albuterol/ Ipratropium (Albuterol/ Ipratropium) 3 ml Q4H PRN HHN Shortness of Breath 06/28/18 17:15 07/03/18 17:14 Ceftriaxone Sodium 1 gm/ Dextrose 55 ml @ 110 mls/hr DAILY IVPB 06/30/18 11:00 07/07/18 10:59 06/30/18 10:37 Dextrose/ Electrolytes 1,000 ml @ 50 mls/hr Q20H IV 06/29/18 12:13 07/29/18 09:29 06/29/18 12:13 Docusate Sodium (Colace) 250 mg TWICE A DAY ORAL 06/28/18 18:00 07/28/18 17:59 Haloperidol Decanoate (Haldol) 100 mg ONCE ONCE IM 06/30/18 11:45 06/30/18 11:46 UNV Heparin Sodium (Porcine) (Heparin 5000 units/ml) 5,000 units EVERY 12 HOURS SUBQ 06/28/18 21:00 07/28/18 20:59 06/29/18 21:09 Lorazepam (Ativan 2mg/ml 1ml) 2 mg Q8H PRN IV For Anxiety 06/28/18 18:00 07/05/18 17:59 Magnesium Hydroxide (Mom) 30 ml DAILYPRN PRN ORAL Constipation 06/28/18 17:15 07/28/18 17:14 Mirtazapine (Remeron) 15 mg BEDTIME ORAL 06/29/18 21:00 07/29/18 20:59 Morphine Sulfate (Morphine Sulfate) 2 mg Q4H PRN IVP Moderate Pain (Pain Scale 4-6) 06/28/18 17:15 07/05/18 17:14 Olanzapine (ZyPREXA) 10 mg BEDTIME ORAL 06/29/18 21:00 07/29/18 20:59 Ondansetron HCl (Zofran) 4 mg Q6H PRN IVP Nausea & Vomiting 06/28/18 17:15 07/28/18 17:14 Phenazopyridine HCl (Pyridium) 100 mg DAILYPRN PRN ORAL dysuria 06/28/18 17:15 07/28/18 17:14 Polyethylene Glycol (Miralax) 17 gm DAILYPRN PRN ORAL Constipation 06/28/18 17:30 07/28/18 17:14 Temazepam (Restoril) 15 mg HSPRN PRN ORAL Insomnia 06/28/18 17:15 07/05/18 17:14 Farrukh Herndon MD Jun 30, 2018 11:44
[2018-06-30] MEDS ORDERED: Haloperidol Decanoate 50mg Inj IM ONE (11:45)
[2018-06-30] MEDS ORDERED: Haloperidol Decanoate 50mg Inj IM SCH (11:45)
--- NOTE | 2018-06-30 12:38 | Diagnostic Imaging Report ---
Indication: Shortness of breath Technique: XRAY Chest 1v Comparison: None Findings: Heart size and mediastinal contours are within normal limits for AP technique. There is no focal consolidation, pneumothorax or pleural effusion. Osseous structures demonstrate no acute abnormality. There are degenerative changes in the spine. Impression: No radiographic evidence of acute cardiopulmonary disease.
[2018-06-30] MEDS: OLANZapine 10mg tab ORAL SCH (20:36)
[2018-07-01] MEDS: D5 1/2NS w/KCL 10meq 1,000 ML IV SCH (04:19)
[2018-07-01 08:00] VITALS: BP 124/83
--- NOTE | 2018-07-01 08:38 | Infectious Diseases Prog Note ---
Assessment/Plan Assessment/Plan 57 yo female with PMHx of DM, COPD and Schizoaffective/Bipolar disorder who was sent from her nursing for failure to thrive. UTI - Dysuria - Resolved UA Mild leukocytosis Afebrile, No leukocytosis Urine Cx NGTD DM COPD Schizoaffective/Bipolar disorder PLAN: - Continue ceftriaxone #2/2 to finish a short course of abx - 06/29/18 SP Cefepime #1 and Vancomycin #1 - Monitor CBC and Temps We will continue to follow the patient during this hospitalization. Subjective Allergies: Coded Allergies: No Known Allergies (Unverified , 02/13/18) Subjective Patient reports on N/V/D or fevers Dysuria resolved Objective Vital Signs Last 24 Hour Vital Signs Date Time Temp Pulse Resp B/P (MAP) Pulse Ox O2 Delivery O2 Flow Rate FiO2 06/30/18 21:00 Room Air 06/30/18 20:00 66 18 97 06/30/18 09:27 76 18 Room Air Height (Feet): 5 Height (Inches): 2.00 Weight (Pounds): 108 Objective Gen: NAD, well appearing, alert HEENT: NCAT, MMM, EOMI, no scleral icterus LUNGS: CTAB, No W/C, No Accessory muscle use CARDS: RRR, S1, S2, No M/R/G ABD: Soft, NT, ND, No R/G, + BS NEURO: A/O x 4, Strength and Sensation Grossly intact Microbiology Date/Time Source Procedure Growth Status 06/28/18 18:55 Blood Blood Culture - Preliminary NO GROWTH AFTER 48 HOURS Resulted 06/28/18 18:35 Blood Blood Culture - Preliminary NO GROWTH AFTER 48 HOURS Resulted 06/28/18 15:00 Nasal Nares MRSA Culture - Final NO METHICILLIN RESISTANT STAPH AUREUS... Complete 06/29/18 07:30 Indwelling Cath Urine Culture - Preliminary NO GROWTH AFTER 24 HOURS Resulted 06/28/18 14:25 Urine,Clean Catch Urine Culture - Final Mixed Gram Positive Organism Complete 06/28/18 15:00 Rectum VRE Culture - Final NO VANCOMYCIN RESISTANT ENTEROCOCCUS ... Complete 06/28/18 15:00 Rectum - Final NO CARBAPENEM-RESISTANT ENTEROBACTERI... Complete Laboratory Tests Test 06/30/18 10:15 White Blood Count 9.1 K/UL (4.8-10.8) Red Blood Count 4.88 M/UL (4.20-5.40) Hemoglobin 14.6 G/DL (12.0-16.0) Hematocrit 44.6 % (37.0-47.0) Mean Corpuscular Volume 91 FL (80-99) Mean Corpuscular Hemoglobin 29.9 PG (27.0-31.0) Mean Corpuscular Hemoglobin Concent 32.7 G/DL (32.0-36.0) Red Cell Distribution Width 11.9 % (11.6-14.8) Platelet Count 178 K/UL (150-450) Mean Platelet Volume 9.0 FL (6.5-10.1) Neutrophils (%) (Auto) 48.5 % (45.0-75.0) Lymphocytes (%) (Auto) 36.0 % (20.0-45.0) Monocytes (%) (Auto) 10.2 % (1.0-10.0) H Eosinophils (%) (Auto) 4.1 % (0.0-3.0) H Basophils (%) (Auto) 1.2 % (0.0-2.0) Sodium Level 143 MMOL/L (136-145) Potassium Level 3.7 MMOL/L (3.5-5.1) Chloride Level 105 MMOL/L (98-107) Carbon Dioxide Level 31 MMOL/L (21-32) Anion Gap 7 mmol/L (5-15) Blood Urea Nitrogen 10 mg/dL (7-18) Creatinine 0.8 MG/DL (0.55-1.30) Estimat Glomerular Filtration Rate > 60 mL/min (>60) Glucose Level 71 MG/DL (74-106) L Calcium Level 9.8 MG/DL (8.5-10.1) Current Medications Medications (Trade) Dose Ordered Sig/Jarod Route PRN Reason Start Time Stop Time Status Last Admin Dose Admin Acetaminophen (Tylenol) 650 mg Q4H PRN ORAL fever (temp>100.5F) 06/28/18 17:15 07/28/18 17:14 Albuterol/ Ipratropium (Albuterol/ Ipratropium) 3 ml Q4H PRN HHN Shortness of Breath 06/28/18 17:15 07/03/18 17:14 Ceftriaxone Sodium 1 gm/ Dextrose 55 ml @ 110 mls/hr DAILY IVPB 06/30/18 11:00 07/07/18 10:59 06/30/18 10:37 Dextrose/ Electrolytes 1,000 ml @ 50 mls/hr Q20H IV 06/29/18 12:13 07/29/18 09:29 07/01/18 04:19 Docusate Sodium (Colace) 250 mg DAILY ORAL 07/01/18 09:00 07/31/18 08:59 07/01/18 08:23 Heparin Sodium (Porcine) (Heparin 5000 units/ml) 5,000 units EVERY 12 HOURS SUBQ 06/28/18 21:00 07/28/18 20:59 06/29/18 21:09 Lorazepam (Ativan 2mg/ml 1ml) 2 mg Q8H PRN IV For Anxiety 06/28/18 18:00 07/05/18 17:59 Magnesium Hydroxide (Mom) 30 ml DAILYPRN PRN ORAL Constipation 06/28/18 17:15 07/28/18 17:14 Mirtazapine (Remeron) 15 mg BEDTIME ORAL 06/29/18 21:00 07/29/18 20:59 Morphine Sulfate (Morphine Sulfate) 2 mg Q4H PRN IVP Moderate Pain (Pain Scale 4-6) 06/28/18 17:15 07/05/18 17:14 Olanzapine (ZyPREXA) 10 mg BEDTIME ORAL 06/29/18 21:00 07/29/18 20:59 Ondansetron HCl (Zofran) 4 mg Q6H PRN IVP Nausea & Vomiting 06/28/18 17:15 07/28/18 17:14 Phenazopyridine HCl (Pyridium) 100 mg DAILYPRN PRN ORAL dysuria 06/28/18 17:15 07/28/18 17:14 Polyethylene Glycol (Miralax) 17 gm DAILYPRN PRN ORAL Constipation 06/28/18 17:30 07/28/18 17:14 Temazepam (Restoril) 15 mg HSPRN PRN ORAL Insomnia 06/28/18 17:15 07/05/18 17:14 Jeyson Charlton MD Jul 01, 2018 08:38
[2018-07-01] MEDS: Heparin 5000 units/ml inj SUBQ SCH (08:59)
[2018-07-01] MEDS: cefTRIAXone 1 GM in D5W 55 ML IVPB SCH (09:00)
[2018-07-01] MEDS ORDERED: Docusate 250mg cap ORAL SCH (09:00)
--- NOTE | 2018-07-01 11:42 | Pulmonology Progress Note ---
Assessment/Plan Problems: (1) Metabolic encephalopathy (2) Failure to thrive (3) Schizoaffective disorder, bipolar type (4) Dehydration (5) Hypokalemia Assessment/Plan got IM antipsychiatric med constipated psych meds psych f/u check electrolytes dvt prophylaxi pt lacks capacity as per psychiatrist dc to group home Subjective ROS Limited/Unobtainable: No Constitutional: Reports: no symptoms HEENT: Repors: no symptoms Allergies: Coded Allergies: No Known Allergies (Unverified , 02/13/18) Objective Last 24 Hour Vital Signs Date Time Temp Pulse Resp B/P (MAP) Pulse Ox O2 Delivery O2 Flow Rate FiO2 07/01/18 09:00 Room Air 07/01/18 07:50 85 18 Room Air 06/30/18 21:00 Room Air 06/30/18 20:00 66 18 97 Intake and Output 06/30/18 07/01/18 19:00 07:00 Intake Total 1430 ml 380 ml Balance 1430 ml 380 ml Intake Oral 850 ml 180 ml IV Total 580 ml 200 ml # Voids 3 2 General Appearance: WD/WN HEENT: normocephalic Respiratory/Chest: chest wall non-tender, lungs clear Breasts: no masses Cardiovascular: normal rate Abdomen: normal bowel sounds, soft, non tender Genitourinary: normal external genitalia Skin: no ulcers Microbiology Date/Time Source Procedure Growth Status 06/28/18 18:55 Blood Blood Culture - Preliminary NO GROWTH AFTER 48 HOURS Resulted 06/28/18 18:35 Blood Blood Culture - Preliminary NO GROWTH AFTER 48 HOURS Resulted 06/28/18 15:00 Nasal Nares MRSA Culture - Final NO METHICILLIN RESISTANT STAPH AUREUS... Complete 06/29/18 07:30 Indwelling Cath Urine Culture - Preliminary NO GROWTH AFTER 24 HOURS Resulted 06/28/18 14:25 Urine,Clean Catch Urine Culture - Final Mixed Gram Positive Organism Complete 06/28/18 15:00 Rectum VRE Culture - Final NO VANCOMYCIN RESISTANT ENTEROCOCCUS ... Complete 06/28/18 15:00 Rectum - Final NO CARBAPENEM-RESISTANT ENTEROBACTERI... Complete Current Medications Medications (Trade) Dose Ordered Sig/Jarod Route PRN Reason Start Time Stop Time Status Last Admin Dose Admin Acetaminophen (Tylenol) 650 mg Q4H PRN ORAL fever (temp>100.5F) 06/28/18 17:15 07/28/18 17:14 Albuterol/ Ipratropium (Albuterol/ Ipratropium) 3 ml Q4H PRN HHN Shortness of Breath 06/28/18 17:15 07/03/18 17:14 Ceftriaxone Sodium 1 gm/ Dextrose 55 ml @ 110 mls/hr DAILY IVPB 06/30/18 11:00 07/07/18 10:59 07/01/18 09:00 Dextrose/ Electrolytes 1,000 ml @ 50 mls/hr Q20H IV 06/29/18 12:13 07/29/18 09:29 07/01/18 04:19 Docusate Sodium (Colace) 250 mg DAILY ORAL 07/01/18 09:00 07/31/18 08:59 07/01/18 08:23 Heparin Sodium (Porcine) (Heparin 5000 units/ml) 5,000 units EVERY 12 HOURS SUBQ 06/28/18 21:00 07/28/18 20:59 06/29/18 21:09 Lorazepam (Ativan 2mg/ml 1ml) 2 mg Q8H PRN IV For Anxiety 06/28/18 18:00 07/05/18 17:59 Magnesium Hydroxide (Mom) 30 ml DAILYPRN PRN ORAL Constipation 06/28/18 17:15 07/28/18 17:14 Mirtazapine (Remeron) 15 mg BEDTIME ORAL 06/29/18 21:00 07/29/18 20:59 Morphine Sulfate (Morphine Sulfate) 2 mg Q4H PRN IVP Moderate Pain (Pain Scale 4-6) 06/28/18 17:15 07/05/18 17:14 Olanzapine (ZyPREXA) 10 mg BEDTIME ORAL 06/29/18 21:00 07/29/18 20:59 Ondansetron HCl (Zofran) 4 mg Q6H PRN IVP Nausea & Vomiting 06/28/18 17:15 07/28/18 17:14 Phenazopyridine HCl (Pyridium) 100 mg DAILYPRN PRN ORAL dysuria 06/28/18 17:15 07/28/18 17:14 Polyethylene Glycol (Miralax) 17 gm DAILYPRN PRN ORAL Constipation 06/28/18 17:30 07/28/18 17:14 Sodium Phosphate (Fleet's Sodium Phosl Enema) 133 ml ONCE ONCE RECTAL 07/01/18 11:45 07/01/18 11:46 UNV Temazepam (Restoril) 15 mg HSPRN PRN ORAL Insomnia 06/28/18 17:15 07/05/18 17:14 Farrukh Herndon MD Jul 01, 2018 11:42
[2018-07-01] MEDS ORDERED: Fleet's Enema 133ml RECTAL SCH (12:00)
[2018-07-01] MEDS ORDERED: LORazepam Inj 2mg/ml 1ml IV SCH (12:45)
--- NOTE | 2018-07-01 13:09 | GI Progress Note ---
Assessment/Plan Problems: (1) Severe malnutrition ICD Codes: E43 - Unspecified severe protein-calorie malnutrition SNOMED: 15867171 (2) Metabolic encephalopathy ICD Codes: G93.41 - Metabolic encephalopathy SNOMED: 61542370 (3) Failure to thrive SNOMED: 36045676 Qualifiers: Qualified Codes: R62.7 - Adult failure to thrive (4) Dehydration ICD Codes: E86.0 - Dehydration SNOMED: 39851549 (5) Schizoaffective disorder, bipolar type ICD Codes: F25.0 - Schizoaffective disorder, bipolar type SNOMED: 51615057 (6) Hypokalemia ICD Codes: E87.6 - Hypokalemia SNOMED: 70359252 Status: stable Status Narrative Discussed with Dr. Velasco. Assessment/Plan patient refusing GI procedures refusing vital signs, agreed to daily refusing bowel regime, agreed to daily colace symptomatic treatment / supportive care adv diet, push PO zofran prn calorie count IV/PO hydration bowel regime pain mgmt fu labs outpatient GI procedures dc planning Subjective Gastrointestinal/Abdominal: Reports: no symptoms Subjective wants to be discharged Objective Last 24 Hour Vital Signs Date Time Temp Pulse Resp B/P (MAP) Pulse Ox O2 Delivery O2 Flow Rate FiO2 07/01/18 11:51 68 18 98 07/01/18 09:00 Room Air 07/01/18 07:50 85 18 Room Air 06/30/18 21:00 Room Air 06/30/18 20:00 66 18 97 Intake and Output 06/30/18 07/01/18 19:00 07:00 Intake Total 1430 ml 380 ml Balance 1430 ml 380 ml Intake Oral 850 ml 180 ml IV Total 580 ml 200 ml # Voids 3 2 Height (Feet): 5 Height (Inches): 2.00 Weight (Pounds): 108 General Appearance: WD/WN, no apparent distress, alert, thin Cardiovascular: normal rate Respiratory/Chest: normal breath sounds, no respiratory distress Abdominal Exam: normal bowel sounds, non tender, soft Extremities: normal range of motion, non-tender Peace Soler NP Jul 01, 2018 13:09
[2018-07-01] MEDS ORDERED: MIRTAZAPINE15 M3 ORAL (13:21)
[2018-07-01] MEDS ORDERED: ZYPREXA10 MG ORAL (13:23)
[2018-07-01] MEDS ORDERED: LORazepam Inj 2mg/ml 1ml IM SCH (13:30)
[2018-07-01] MEDS ORDERED: DiphenhydrAMINE 50mg/ml Inj IM SCH (13:30)
--- NOTE | 2018-07-01 14:55 | General Progress Note ---
Assessment/Plan Status: stable, progressing Assessment/Plan Schizophrenia The pt lacks capacity to make decisions -Haldol dec 100mg x 1 time -cont Zyprexa -cont Remeron Subjective Date patient seen: Jul 01, 2018 Neurologic/Psychiatric: Reports: anxiety, depressed, emotional problems Allergies: Coded Allergies: No Known Allergies (Unverified , 02/13/18) Subjective the pt is paranoid and has poor insight Objective Last 24 Hour Vital Signs Date Time Temp Pulse Resp B/P (MAP) Pulse Ox O2 Delivery O2 Flow Rate FiO2 07/01/18 11:51 68 18 98 07/01/18 09:00 Room Air 07/01/18 07:50 85 18 Room Air 06/30/18 21:00 Room Air 06/30/18 20:00 66 18 97 Intake and Output 06/30/18 07/01/18 19:00 07:00 Intake Total 1430 ml 380 ml Balance 1430 ml 380 ml Intake Oral 850 ml 180 ml IV Total 580 ml 200 ml # Voids 3 2 Height (Feet): 5 Height (Inches): 2.00 Weight (Pounds): 108 General Appearance: no apparent distress, alert Neurologic: oriented x 3, responsive, depressed affect Farhan Mclaughlin MD Jul 01, 2018 14:55
[2018-07-01] MEDS ORDERED: NS 275ml ONE (15:04)
[2018-07-01] MEDS ORDERED: Tubing IV Secondary IV ONE (15:04)
[2018-07-02] MEDS ORDERED: DULCOLAX10 MG RC (17:22)
[2018-07-02] MEDS ORDERED: mylanta ORAL (17:24)
[2018-07-02] MEDS ORDERED: ALBUTEROL SULF8.5 GM INH (17:24)
[2018-07-02] MEDS ORDERED: ACETAMINOPHEN325 M1 ORAL (17:25)
[2018-07-02] MEDS ORDERED: CIPROFLOXACIN500 M2 ORAL (19:24)
--- NOTE | 2018-07-04 12:18 | Discharge Summary ---
Discharge Summary Discharge Summary _ DATE OF ADMISSION: 06/28/2018 DATE OF DISCHARGE: 07/01/2018 REASON FOR ADMISSION: 57 years old female with past medical history of COPD, hypertension, hyponatremia, diabetes mellitus, schizoaffective disorder bipolar type, was sent from the [facility] facility for evaluation. Apparently patient was argumentative with staff and aggressive. She denied suicidal or homicidal ideations. She refused to eat for at least one day. She denied abdominal pain, but admitted to dysuria and frequency, no blood in urine. Upon arrival she had no fever . Laboratory workup revealed no leukocytosis . BUN 19 creatinine 0.7. Troponin negative. Urine toxicology screen negative . EKG revealed normal sinus rhythm, no acute ischemic changes. Urinalysis with evidence of UTI. Patient admitted with diagnoses of UTI ,dehydration, acute encephalopathy on chronic psychiatric disorder, schizoaffective disorder bipolar type, COPD, history of hypertension. CONSULTANTS: ID specialist Dr. Anguiano GI specialist Dr. Velasco psychiatrist Dr. Mclaughlin [facility] COURSE: Patient admitted to medical surgical floor. Patient started on IV hydration. Renal parameters and electrolytes were closely monitored. Electrolytes replaced as needed. Nephrotoxins were avoided. Prior to discharge BUN from 19 down to 10 and creatinine 0.8. Patient started on empiric antibiotic. Pyridium was provided for comfort. Urine culture revealed mixed gram-positive organisms. Blood culture were negative. Repeated urine culture were negative. Per infectious disease specialist, complete the short course of antibiotics while in the facility. No leukocytosis , no fevers. Dysuria resolved . Monitor patient off antibiotics as outpatient. Supplemental oxygen provided as needed to keep pulse oximetry above 92%. Pulmonary toilet was on standby as needed. Chest x-ray revealed no evidence of acute cardiopulmonary pathology. Patient had no evidence of respiratory distress ot bronchospasm, remains stable respiratory duran. Blood pressure was closely monitored . Patient remained normotensive, no need for antihypertensive medication on this admission. DVT prophylaxis provided . Bowel regimen instituted. Supportive care provided . Psychiatrist seen and evaluated the patient , and stated that the patient lacked capacity to make decisions. Psychiatric medication regimen was optimized. GI specialist follow. Patient declined GI procedures. Patient declined bowel regimen , but agreed to daily stool softener. Symptomatic and supportive care provided. Diet was advanced as tolerated, antiemetics provided as needed. Ortal fluids were pushed. Calorie count instituted. Nutritional recommendations implemented in plan of care. Pain management was addressed as needed. Hemoglobin and hematocrit remained stable. Recommended outpatient GI procedure. Patient was stabilized and ready fro discharge to the [facility] facility for continuation of care. FINAL DIAGNOSES: Acute metabolic encephalopathy( likely due to infection and dehydration) on chronic psychiatric disorder Dehydration Dysuria , probably UTI Schizophrenia COPD History of hypertension Severe malnutrition DISCHARGE MEDICATIONS: See Medication Reconciliation list. DISCHARGE INSTRUCTIONS: Patient was discharged to the [facility] facility. Follow up with medical doctor at the facility. I have been assigned to dictate discharge summary for this account. I was not involved in the patient's management. Pastora Crews NP Jul 04, 2018 12:18
== END 2018-07-01 15:05 | DRG 689 ==
LOC: EDBD 14:09 → EMR 14:21 → 3E 15:25 → EDBEDREQ 16:09 → 3E 17:34
DX: N39.0 Urinary tract infection, site not specified (principal); G93.40 Encephalopathy, unspecified; G93.41 Metabolic encephalopathy; E43 Unspecified severe protein-calorie malnutrition; E86.0 Dehydration; F25.0 Schizoaffective disorder, bipolar type; J44.9 Chronic obstructive pulmonary disease, unspecified; I10 Essential (primary) hypertension; E11.9 Type 2 diabetes mellitus without complications; E87.6 Hypokalemia
CPT/HCPCS: 36415; 71045; 80048; 80053; 80307; 80329; 81001; 81003; 82550; 83036; 84484; 85025; 87040; 87081; 87086; 93005; 94664; 96374; 97802; 99285

== ENCOUNTER 2018-07-02 16:39 | Emergency (ER) | payer MEDICARE, MEDICAID ==
[~2018-07-02] VITALS: Ht 160 cm; Wt 59.0 kg
[2018-07-02 16:39] VITALS: BP 94/64
[~2018-07-02 16:39] MED LIST changes: +CRANBERRY450 M4 PO; +FLEET ENEMA133 ML RECTAL; +GERI-LANTA LIQ355 ML PO; +METAMUCIL1 PK1 ORAL; +MILK OF MA400 MG/51 ORAL; +MIRTAZAPINE15 M3 ORAL; +MIRTAZAPINE7.5 MG ORAL; +MULTIVITAMINS1 EAC2 ORAL; +PRO-STAT LIQUID30 ML ORAL; +VALPROIC A250 MG/5 M PO
--- NOTE | 2018-07-02 17:20 | Emergency Room Report ---
History of Present Illness General Chief Complaint: Behavioral Complaint Source: Patient, Medical Record Present Illness HPI 57-year-old female sent from [facility] Because she was being aggressive with her residential staff, and patient reports that she did not like the way they were treating her and so she did not want to stay there and was being rude to them. She denies anyone hurting her there, but reports that they handled her aggressively. Allergies: Coded Allergies: No Known Allergies (Unverified , 02/13/18) Patient History Past Medical History: see triage record Reviewed Nursing Documentation: PMH: Agreed; PSxH: Agreed Nursing Documentation-PMH Past Medical History: No History, Except For Hx Cardiac Problems: No Hx Hypertension: Yes Hx Pacemaker: No - hypernatremia Hx COPD: Yes Hx Diabetes: Yes Hx Gastrointestinal Problems: Yes History Of Psychiatric Problem: Yes - Scz, Bipolar, psychosis Hx Neurological Problems: No - metabolic encephalopathy Review of Systems All Other Systems: negative except mentioned in HPI Physical Exam Vital Signs Date Time Temp Pulse Resp B/P (MAP) Pulse Ox O2 Delivery O2 Flow Rate FiO2 07/02/18 16:39 98.0 76 16 94/64 98 Room Air 98.0 Sp02 EP Interpretation: reviewed, normal General Appearance: no apparent distress, alert, non-toxic Head: normocephalic Eyes: bilateral eye normal inspection, bilateral eye PERRL, bilateral eye EOMI ENT: normal ENT inspection, hearing grossly normal, normal pharynx, no angioedema, normal voice, moist mucus membranes Neck: normal inspection, full range of motion, supple, supple/symm/no masses Respiratory: chest non-tender, lungs clear, normal breath sounds, chest symmetrical, palpation of chest normal Cardiovascular #1: normal peripheral pulses, regular rate, rhythm Cardiovascular #2: 2+ radial (R), 2+ radial (L) Gastrointestinal: normal inspection, non tender, soft, no mass, no guarding, no rebound Rectal: deferred Genitourinary: normal inspection, no CVA tenderness Musculoskeletal: back normal, gait/station normal, normal range of motion, non- tender, no calf tenderness 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: alert, 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, 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 Will discharge back to residential and request that social work follow-up and try to get a new facility for her to stay at in the future. Last Vital Signs Date Time Temp Pulse Resp B/P (MAP) Pulse Ox O2 Delivery O2 Flow Rate FiO2 07/02/18 16:39 98.0 76 16 94/64 98 Room Air 98.1 Disposition: HOME, SELF-CARE Condition: Stable Referrals: Farrukh Herndon MD (PCP) JUAN MIGUEL MÉNDEZ M.D Jul 02, 2018 17:20
[2018-07-02] MEDS ORDERED: DULCOLAX10 MG RC (17:22)
[2018-07-02] MEDS ORDERED: ALBUTEROL SULF8.5 GM INH (17:24)
[2018-07-02] MEDS ORDERED: mylanta ORAL (17:24)
[2018-07-02] MEDS ORDERED: ACETAMINOPHEN325 M1 ORAL (17:25)
[2018-07-02 17:52] LABS: BASOPHILS % (AUTO) 1.4 % (0.0-2.0); EOSINOPHILS % (AUTO) 3.2 % (0.0-3.0); HEMATOCRIT 43.2 % (37.0-47.0); HEMOGLOBIN 14.3 G/DL (12.0-16.0); LYMPHOCYTES % (AUTO) 23.7 % (20.0-45.0); MEAN CORPUSCULAR VOLUME 93 FL (80-99); MONOCYTES % (AUTO) 11.6 % (1.0-10.0); NEUTROPHILS % (AUTO) 60.2 % (45.0-75.0); PLATELET COUNT 254 K/UL (150-450); RED BLOOD COUNT 4.66 M/UL (4.20-5.40); WHITE BLOOD COUNT 14.7 K/UL (4.8-10.8)
[2018-07-02 17:56] LABS: ANION GAP 7 mmol/L (5-15); BLOOD UREA NITROGEN 16 mg/dL (7-18); CALCIUM 9.3 MG/DL (8.5-10.1); CARBON DIOXIDE 27 MMOL/L (21-32); CHLORIDE 101 MMOL/L (98-107); CREATININE 0.8 MG/DL (0.55-1.30); POTASSIUM 4.5 MMOL/L (3.5-5.1); SODIUM 135 MMOL/L (136-145)
[2018-07-02 18:00] LABS: ALANINE AMINOTRANSFERASE 23 U/L (12-78); ALBUMIN 3.3 G/DL (3.4-5.0); ALBUMIN/GLOBULIN RATIO 0.8 (1.0-2.7); ALKALINE PHOSPHATASE 85 U/L (46-116); ASPARTATE AMINO TRANSFERASE 29 U/L (15-37); BILIRUBIN,TOTAL 0.3 MG/DL (0.2-1.0)
[2018-07-02 18:01] LABS: APPEARANCE,URINE CLEAR; BILIRUBIN, URINE NEGATIVE (NEGATIVE); COLOR,URINE PALE YELLOW; GLUCOSE, URINE (UA) NEGATIVE (NEGATIVE); KETONES,URINE NEGATIVE (NEGATIVE); LEUKOCYTE ESTERASE ,URINE 2+ (NEGATIVE); NITRITE,URINE NEGATIVE (NEGATIVE); PH,URINE 6 (4.5-8.0); PROTEIN,URINE NEGATIVE (NEGATIVE); UROBILINOGEN,URINE NORMAL MG/DL (0.0-1.0)
[2018-07-02] MEDS ORDERED: CIPROFLOXACIN500 M2 ORAL (19:24)
[2018-07-02] MEDS ORDERED: LORazepam 1mg tab ORAL ONE (19:30)
[2018-07-02] MEDS ORDERED: Lidocaine 1% MPF 10mg/ml 5ml INJ ONE (19:30)
[2018-07-02 19:45] VITALS: BP 94/64
--- NOTE | 2018-07-04 15:56 | Consultation ---
History of Present Illness General Date patient seen: Jul 02, 2018 Chief Complaint: Behavioral Complaint Present Illness HPI the pt was [facility]ics then eloped after she was told she is going back to her back to her facility. abhijit brought her back to facility at [place] the p t is not suicidal nor homicidal Allergies: Coded Allergies: No Known Allergies (Unverified , 02/13/18) Medication History Scheduled Bisacodyl (Dulcolax), 10 MG RC DAILY, (Reported) Ciprofloxacin Hcl* (Ciprofloxacin Hcl*), 500 MG ORAL Q12H Cranberry Fruit Concentrate (Cranberry), 900 MG PO DAILY, (Reported) Docusate Sodium* (Docusate Sodium*), 250 MG ORAL TWICE A DAY, (Reported) Haloperidol Lactate (Haloperidol Lactate), 15 MG ORAL BID, (Reported) Mag Hydrox/Al Hydrox/Simeth (Maria R-Lanta Liquid), 30 ML PO Q4HR, (Reported) Magnesium Hydroxide* (Milk Of Magnesia*), 30 ML ORAL DAILY, (Reported) Mirtazapine* (Mirtazapine*), 15 MG ORAL BEDTIME, (Reported) Multivitamins* (Multivitamins*), 1 TAB ORAL DAILY, (Reported) Na Phos,M-B/Na Phos,Di-Ba* (Fleet Enema*), 1 UNIT RECTAL PRN, (Reported) Olanzapine* (Zyprexa*), 10 MG ORAL BEDTIME, (Reported) Valproate Sodium (Valproic Acid), 250 MG PO BID, (Reported) Scheduled PRN Acetaminophen* (Acetaminophen 325MG Tablet*), 650 MG ORAL Q6H PRN for For Pain, (Reported) Albuterol Sulfate* (Albuterol Sulfate Mdi*), 2 PUFF INH Q4H PRN for Shortness of Breath, (Reported) [mylanta], 30 ML ORAL EVERY 4 HOURS PRN for HEARTBURN, (Reported) Discontinued Medications Amino Acids/Protein Hydrolys (Pro-Stat Liquid), 30 ML ORAL DAILY, (Reported) Discontinued Reason: discontinued med Glucagon,Human Recombinant (Glucagen), 1 MG IJ, (Reported) Discontinued Reason: MD discontinued med Levalbuterol Hcl (Xopenex*), 0.63 MG HHN Q8HR, (Reported) Discontinued Reason: MD discontinued med Lorazepam* (Lorazepam*), 2 MG IV Q8HR, (Reported) Discontinued Reason: MD discontinued med Metformin Hcl* (Metformin Hcl*), 500 MG ORAL TID, (Reported) Discontinued Reason: MD discontinued med Mirtazapine* (Mirtazapine*), 30 MG ORAL BEDTIME, (Reported) Discontinued Reason: Medication dose changed Olanzapine* (Zyprexa*), 10 MG ORAL DAILY, (Reported) Discontinued Reason: Medication dose changed Potassium Bicarbonate/Cit Ac (Effer-K 20 Meq Tablet Eff), 40 MEQ PO, (Reported) Discontinued Reason: MD discontinued med Psyllium (Metamucil Powder), 1 PKT ORAL BID, (Reported) Discontinued Reason: MD discontinued med Patient History Healthcare decision maker Resuscitation status Advanced Directive on File Review of Systems Psychiatric: Reports: prior hx, anxiety, depressed feelings, emotional problems Physical Exam General Appearance: no apparent distress, alert Height (Feet): 5 Height (Inches): 3.00 Weight (Pounds): 130 Assessment/Plan Problem List: (1) Severe malnutrition ICD Codes: E43 - Unspecified severe protein-calorie malnutrition SNOMED: [id number] Assessment/Plan schizoaffective d/o Farhan Mclaughlin MD Jul 04, 2018 15:56
== END 2018-07-02 19:46 | disposition home or self-care (01) ==
LOC: EDBD 16:39 → EMR 16:55
DX: F91.9 Conduct disorder, unspecified (principal); N39.0 Urinary tract infection, site not specified; F31.9 Bipolar disorder, unspecified; I10 Essential (primary) hypertension; J44.9 Chronic obstructive pulmonary disease, unspecified; E11.9 Type 2 diabetes mellitus without complications; E43 Unspecified severe protein-calorie malnutrition; Z68.23 Body mass index [BMI] 23.0-23.9, adult
CPT/HCPCS: 36415; 80053; 80307; 81003; 85025; 87086; 87181; 96372; 99283; G0480; 80329